=== PATIENT | female | born 1975 | race Caucasian/White ===

== ENCOUNTER 2016-08-11 15:00 | Emergency (ER) | payer BC ==
[2016-08-11] MEDS ORDERED: SODIUM CHLORIDE 0.9% 1,000 ML IV STA ×2 (15:35)
[2016-08-11] MEDS ORDERED: LORazepam 2 MG/ML SYRINGE IV STA (15:35)
[2016-08-11] MEDS ORDERED: ONDANSETRON 4 MG/2 ML VIAL IVP STA (15:35)
--- NOTE | 2016-08-11 15:40 | ED ---
General Adult HPI - General Chief complaint: Dizziness Stated complaint: Vomiting/Dizzy Source: patient, family, RN notes reviewed Mode of arrival: wheelchair Limitations: no limitations - History of Present Illness Initial comments: Chief complaint and history of present illness; this is a 41-year-old female here with her significant other. She reports she's had nausea vomiting and diarrhea that started yesterday. Today nausea vomiting. She states when she moves her head she becomes dizzy and vomits sometimes. On occasion she has the sweats and then the chills. Denying any chest pain or palpitations. No chest pain. She has had on-again off-again headache for the past 2 days. No meningeal irritation. No stiff neck. No injuries. - Related Data Home Medications Medication Instructions Recorded Confirmed Inulin/Chromium Picolinate [Fiber 1 tab PO DAILY 08/11/16 08/11/16 Gummies Chew] Phentermine HCl [Adipex-P] 37.5 mg PO QAM 08/11/16 08/11/16 Prilosec Unknown Strength 1 tab PO DAILY PRN 08/11/16 08/11/16 Topamax Unknown Strength 1 tab PO DAILY 08/11/16 08/11/16 Previous Rx's Medication Instructions Recorded Meclizine [Antivert] 25 mg PO TID #30 tab 08/11/16 Ondansetron Odt [Zofran ODT] 4 mg PO Q8HR PRN #5 tab 08/11/16 Allergies Allergy/AdvReac Type Severity Reaction Status Date / Time No Known Allergies Allergy Verified 08/11/16 16:09 Review of Systems ROS Statement: Those systems with pertinent positive or pertinent negative responses have been documented in the HPI. Review of systems. No visual acuity changes, occasional headaches. Dizziness with vomiting. No meningismus or stiff neck. No complaint of chest pain or shortness of breath. She's had nausea vomiting and diarrhea yesterday nausea vomiting today. Denies bad food, denies blood in the vomit or stool. Denies anyone else in the area around her has been ill with similar symptoms. All systems reviewed. Past medical problems GERD, surgeries none. Family history father had an SC. Patient denies ALLERGIES nonsmoker nondrinker. Denies being around any or exposed to any harmful chemicals. ROS Other: All systems not noted in ROS Statement are negative. Past Medical History Past Medical History: GERD/Reflux History of Any Multi-Drug Resistant Organisms: None Reported Past Surgical History: No Surgical Hx Reported Past Psychological History: No Psychological Hx Reported Smoking Status: Never smoker Past Alcohol Use History: None Reported Past Drug Use History: None Reported General Exam - General Exam Comments Initial Comments: General: The patient is awake and alert, feels nauseated and vomited. Temp 98.1 pulse 65 respiratory rate 20 pulse ox on percent room air blood pressure 126/79 . Patient had slight sinus congestion last week. Eye: Pupils are equal, round and reactive to light, extra-ocular movements are intact ; there is normal conjunctiva bilaterally. No signs of icterus. Ears, nose, mouth and throat: There are moist mucous membranes and no oral lesions. Neck: No complaint of stiff neck or neck pain. Cardiovascular: There is a regular rate and rhythm. No murmur, rub or gallop is appreciated. Respiratory: Lungs are clear to auscultation, respirations are non-labored, breath sounds are equal. No wheezes, stridor, rales, or rhonchi. Gastrointestinal: Back: There is no tenderness to palpation in the midline. There is no obvious deformity. Musculoskeletal: Normal ROM, no tenderness, There is no pedal edema. There is no calf tenderness or swelling. Sensation intact. Neurological: CN II-XII intact, There are no obvious motor or sensory deficits. Coordination appears grossly intact. Speech is normal. Patient gets dizzy and vomits with head movement. Skin: Skin is warm and dry and no rashes or lesions are noted. Limitations: no limitations Course Vital Signs 08/11/16 08/11/16 15:06 17:09 Temperature 98.1 F Pulse Rate 65 72 Respiratory 20 16 Rate Blood Pressure 126/79 129/82 O2 Sat by Pulse 100 100 Oximetry EKG Findings - EKG Comments: EKG Findings:: EKG was done and reviewed at 1659 showing sinus bradycardia rate [address] elevation no ectopy no ischemic changes. OK interval is 146 QRS was 90 QT [address] Trejo Medical Decision Making - Medical Decision Making Medical decision making patient's white count is 10.9 hemoglobin 10 hematocrit of 32 with a potassium 4.2 BUN 11 creatinine 0.7 with a GFR greater than 60 glucose 90. Patient states she is feeling better with medications on board CT the brain was done and reviewed by radiologist his impression is normal CT brain. As read by Dr. Peoples At this time the patient reports she is feeling slightly better. She will be placed on medications for nausea as well as dizziness. - Lab Data Result diagrams: 08/11/16 17:00 08/11/16 17:00 Lab Results 08/11/16 08/11/16 08/11/16 Range/Units 17:00 17:00 17:00 WBC 10.9 H (3.8-10.6) k/uL RBC 3.83 (3.80-5.40) m/uL Hgb 10.1 L (11.4-16.0) gm/dL Hct 32.5 L (34.0-46.0) % MCV 84.7 (80.0-100.0) fL MCH 26.2 (25.0-35.0) pg MCHC 31.0 (31.0-37.0) g/dL RDW 14.2 (11.5-15.5) % Plt Count 333 (150-450) k/uL Neutrophils % 91 % Lymphocytes % 6 % Monocytes % 3 % Eosinophils % 0 % Basophils % 0 % Neutrophils # 9.9 H (1.3-7.7) k/uL Lymphocytes # 0.6 L (1.0-4.8) k/uL Monocytes # 0.3 (0-1.0) k/uL Eosinophils # 0.0 (0-0.7) k/uL Basophils # 0.0 (0-0.2) k/uL Hypochromasia Moderate Sodium 142 (137-145) mmol/L Potassium 4.2 (3.5-5.1) mmol/L Chloride 110 H (98-107) mmol/L Carbon Dioxide 22 (22-30) mmol/L Anion Gap 10 mmol/L BUN 11 (7-17) mg/dL Creatinine 0.70 (0.52-1.04) mg/dL Est GFR (MDRD) Af Amer >60 (>60 ml/min/1.73 sqM) Est GFR (MDRD) Non-Af >60 (>60 ml/min/1.73 sqM) Glucose 97 (74-99) mg/dL Calcium 9.3 (8.4-10.2) mg/dL Total Bilirubin 0.5 (0.2-1.3) mg/dL AST 13 L (14-36) U/L ALT 20 (9-52) U/L Alkaline Phosphatase 53 (38-126) U/L Troponin I <0.012 (0.000-0.034) ng/mL Total Protein 7.4 (6.3-8.2) g/dL Albumin 4.1 (3.5-5.0) g/dL Disposition Clinical Impression: Vertigo Disposition: HOME SELF-CARE Condition: Fair Instructions: Dizziness (ED), Vertigo (ED) Additional Instructions: Increase fluids. Use Antivert 1 tablet 3 times daily for the next 10 days. Use Zofran under your tongue to control for nausea and vomiting. Follow-up with your family physician Prescriptions: Meclizine [Antivert] 25 mg PO TID #30 tab Ondansetron Odt [Zofran ODT] 4 mg PO Q8HR PRN #5 tab PRN Reason: Nausea Time of Disposition: 19:39
[2016-08-11] MEDS ORDERED: MECLIZINE 12.5 MG TAB PO STA (16:28)
[2016-08-11 17:27] LABS: Basophils % (A) 0 %; CH 26.1; CHCM 30.9; Eosinophils % (A) 0 %; HCT 32.5 % (34.0-46.0); HDW 2.85; HGB 10.1 gm/dL (11.4-16.0); Hypochromasia Moderate; Luc # (Auto) 0.07; Luc % (Auto) 1; Lymphocytes # (A) 0.6 k/uL (1.0-4.8); Lymphocytes % (A) 6 %; MCH 26.2 pg (25.0-35.0); MCV 84.7 fL (80.0-100.0); Mean Platelet Volume 7.1; Monocytes # (A) 0.3 k/uL (0-1.0); Monocytes % (A) 3 %; Neutrophils # (A) 9.9 k/uL (1.3-7.7); Neutrophils % (A) 91 %; RBC 3.83 m/uL (3.80-5.40); RDW 14.2 % (11.5-15.5); WBC 10.9 k/uL (3.8-10.6); WBC (Perox) 10.88
[2016-08-11 17:42] LABS: ALT 20 U/L (9-52); AST 13 U/L (14-36); Alkaline Phosphatase 53 U/L (38-126); Anion Gap 10 mmol/L; Blood Urea Nitrogen 11 mg/dL (7-17); Calcium 9.3 mg/dL (8.4-10.2); Carbon Dioxide 22 mmol/L (22-30); Chloride 110 mmol/L (98-107); Glucose 97 mg/dL (74-99); Non-African American GFR(MDRD) >60 (>60 ml/min/1.73 sqM); Potassium 4.2 mmol/L (3.5-5.1); Sodium 142 mmol/L (137-145); Total Bilirubin 0.5 mg/dL (0.2-1.3); Total Protein 7.4 g/dL (6.3-8.2)
[2016-08-11 18:42] VITALS: RESP 16
[2016-08-11] MEDS ORDERED: METOCLOPRAMIDE 5 MG/ML 2 ML VIAL IVP STA (18:45)
--- NOTE | 2016-08-11 19:14 | CT ---
EXAMINATION TYPE: CT brain wo con DATE OF EXAM: 08/11/2016 6:28 PM COMPARISON: 06/13/2011 INDICATION: Headache and dizziness for 2 days DLP: 1051.7 mGycm, Automated exposure control for dose reduction was used. CONTRAST: None CT of the brain is performed utilizing 3 mm thick sections through the posterior fossa and 3 mm thick sections through the remaining calvarium. Study is performed within 24 hours of arrival to the hosp [facility]. No abnormal hyperdensity is present to suggest an acute intracranial hemorrhage. No mass lesion is evident. No acute infarcts are evident. Ventricles and sulci are appropriate for the patient age. Paranasal sinuses and mastoid air cells within the [id number] are clear. IMPRESSIONS: 1. Normal CT Brain
[2016-08-11 19:50] VITALS: BP 135/85; PULSE 77
[2016-08-11 20:30] VITALS: TEMP 98
== END 2016-08-11 20:20 | disposition home or self-care (01) ==
LOC: EC 15:00
DX: R42 Dizziness and giddiness (principal); R09.81 Nasal congestion; R11.2 Nausea with vomiting, unspecified; R51 Headache; R68.83 Chills (without fever); Z79.899 Other long term (current) drug therapy
CPT/HCPCS: 99284; 96374; 96375; 96361 ×3; 36415; 93005; 80053; 84484; 85025; 70450; J2060; J2405

== ENCOUNTER 2016-09-02 08:08 | Day surgery (SDC) | payer BC ==
[2016-08-30 09:02] VITALS: BMI 23.9
[~2016-09-02 08:08] MED LIST: LACTATED RINGERS 1,000 ML IV SCH; LIDOCAINE 1% 20 ML VIAL (10MG/ML) FOR IV START INTRADERMA PRN
[2016-09-02] MEDS ORDERED: LACTATED RINGERS 1,000 ML IV ONE (08:21)
[2016-09-02 08:26] VITALS: TEMP 98
[2016-09-02] MEDS ORDERED: PROPOFOL 10 MG/ML 20 ML VIAL IV ONE (08:45)
--- NOTE | 2016-09-02 09:16 | P.OP ---
Date of Procedure: 09/02/16 Preoperative Diagnosis: Abdominal pain , weight loss, constipation Postoperative Diagnosis: Normal colon Procedure(s) Performed: Colonoscopy with biopsy using cold biospy forceps Anesthesia: AD Surgeon: Lenora Wells Pathology: other Condition: stable Disposition: PACU Description of Procedure: The patient was brought to the endoscopy suite and placed in lateral decubitus position. IV sedation was given as per anesthesia team.A timeout was performed to verify correct patient and correct procedure.Perianal examination did not reveal any external hemorrhoids. Digital rectal examination was performed. A well-lubricated endoscope was passed per rectally and was gradually advanced beyond the sigmoid colon, splenic flexure, transverse colon, hepatic flexure and cecum. The ileocecal valve was visualized. Scope was gradually withdrawn inspecting all the mucosal surfaces. No other polyps or masses noted. No biopsies were taken throughout the colon in the cecum and transverse colon ascending colon sigmoid and rectum. Retroflexed in the rectum no internal hemorrhoid was noted . The scope was gradually withdrawn. Patient tolerated the procedure well and was taken to post anesthesia care unit in stable condition.
[2016-09-02 09:19] VITALS: RESP 16
[2016-09-02 09:44] VITALS: BP 138/94; PULSE 67
== END 2016-09-02 10:15 | disposition home or self-care (01) ==
LOC: ORWHC2ENDO 08:08
PROVIDERS: ATTEND Surgery
DX: R10.9 Unspecified abdominal pain (principal); R63.4 Abnormal weight loss; K59.00 Constipation, unspecified; K21.0 Gastro-esophageal reflux disease with esophagitis; I10 Essential (primary) hypertension; E78.00 Pure hypercholesterolemia, unspecified; Z79.899 Other long term (current) drug therapy
CPT/HCPCS: 81025; 88305; 45380; J2704

== ENCOUNTER → 2017-03-13 | Outpatient (CLI) | payer BC ==
--- NOTE | 2017-03-13 11:09 | MM ---
Reason for exam: screening (asymptomatic). Baseline mammogram. History: Took hormonal contraceptives beginning at age 21. Physical Findings: Nurse did not find any significant physical abnormalities on exam. MG Screening Mammo w CAD Bilateral CC and MLO view(s) were taken. The breast tissue is heterogeneously dense. This may lower the sensitivity of mammography. There is no discrete abnormality. These results were verbally communicated with the patient and result sheet given to the patient on 03/13/17. ASSESSMENT: Incomplete: need additional imaging evaluation, BI-RAD 0 RECOMMENDATION: Ultrasound of the left breast. [facility] will attempt to contact patient to return for ultrasound.
--- NOTE | 2017-03-13 11:12 | USB ---
Reason for exam: additional evaluation requested from abnormal screening. History: Took hormonal contraceptives beginning at age 21. US Breast Workup Limited LT Left breast ultrasound demonstrates no cystic or solid lesion seen. These results were verbally communicated with the patient and result sheet given to the patient on 03/13/17. ASSESSMENT: Negative, BI-RAD 1 RECOMMENDATION: Return to routine screening mammogram schedule for both breasts. Manage on a clinical basis with regard to left palpable.
== END ==
LOC: RADMAMWWP 07:21
PROVIDERS: ATTEND Obstetrics & Gynecology
DX: Z12.31 Encounter for screening mammogram for malignant neoplasm of breast (principal); R92.8 Other abnormal and inconclusive findings on diagnostic imaging of breast
CPT/HCPCS: 76642; G0202

== ENCOUNTER 2018-10-16 20:36 | Observation (INO) | payer BC ==
--- NOTE | 2018-10-16 21:19 | ED ---
General Adult HPI - General Chief complaint: Back Pain/Injury Stated complaint: Back,Shoulder,Rib Pain Time Seen by Provider: 10/16/18 21:18 Source: patient Mode of arrival: ambulatory Limitations: no limitations - History of Present Illness Initial comments: Damaris is a 43-year-old female with past medical history significant for spontaneous pneumothorax which occurred while she was ~15 years ago. Patient's presenting to the ER today for evaluation of pleuritic left-sided chest pain. Patient reports that 2-3 days ago she is having some aching cramping pain in her right lower extremity she had noticed some scant edema in her bilateral feet. As no history of clotting disorder no known family history of clotting disorder no personal history of DVT or PE in the past. Patient reports she woke this morning with a sharp pain in her left chest which is worse with deep inspiration. As I tried any medications for the pain, is been persist ent all day. She denies any associated fevers, chills, palpitations. She has no cardiac history. She is concerned that she may have inflammation around her lung. - Related Data Home Medications Medication Instructions Recorded Confirmed Ergocalciferol [Vitamin D2] 50,000 unit PO WE 10/16/18 10/16/18 Etonogestrel/Ethinyl Estradiol 1 ring VAGINAL DIRECTED 10/16/18 10/16/18 [Nuvaring Vaginal Ring] Iron(Unknown) 1 tab PO BID 10/16/18 10/16/18 Pantoprazole Sodium [Protonix] 40 mg PO DAILY 10/16/18 10/16/18 Allergies Allergy/AdvReac Type Severity Reaction Status Date / Time No Known Allergies Allergy Verified 10/16/18 21:49 Review of Systems ROS Statement: Those systems with pertinent positive or pertinent negative responses have been documented in the HPI. ROS Other: All systems not noted in ROS Statement are negative. Past Medical History Past Medical History: GERD/Reflux, Hypertension Additional Past Medical History / Comment(s): ANEMIA, STATES HEAVY MENSTRUAL PERIODS. , HTN- NO MEDS. History of Any Multi-Drug Resistant Organisms: None Reported Past Surgical History: No Surgical Hx Reported Additional Past Surgical History / Comment(s): EGD Past Anesthesia/Blood Transfusion Reactions: No Reported Reaction, Motion Sickness Past Psychological History: No Psychological Hx Reported Smoking Status: Never smoker Past Alcohol Use History: None Reported Past Drug Use History: None Reported - Past Family History Mother Family Medical History: No Reported History General Exam Limitations: no limitations Course Vital Signs 10/16/18 20:53 Temperature 98.3 F Pulse Rate 83 Respiratory 20 Rate Blood Pressure 155/97 O2 Sat by Pulse 100 Oximetry EKG Findings - EKG Comments: EKG Findings:: EKG was obtained due to complaint of chest pain, EKG obtained at 2203, 74 rhythm is sinus there is normal axis there are normal intervals, DE 152, QRS 78, QTC is 452. There is no evidence of acute ischemia or infarction there is no evidence of acute right heart strain there is no S1 Q3 T3 pattern noted. Medical Decision Making - Medical Decision Making The patient was seen and evaluated history was obtained from the patient Patient with pleuritic sounding left-sided chest pain, she does have a history of a spontaneous pneumo in the past workup was initiated with labs and imaging His x-ray was unremarkable Labs with worsening anemia, previous hemoglobin and 2017 was noted to be 10, patient states thather Hgb last month was 8, hemoglobin today is 7.8 D-dimer is markedly elevated - CT pulmonary embolism study was ordered CT reveals a left segmental pulmonary embolism with no signs of acute right heart strain Results were discussed with patient High dose heparin ordered Pt care discussed with Dr. Montague who accepts the admission - Lab Data Result diagrams: 10/16/18 21:20 10/16/18 21:20 Lab Results 10/16/18 10/16/18 10/16/18 Range/Units 21:20 21:20 21:20 WBC 6.5 (3.8-10.6) k/uL RBC 3.70 L (3.80-5.40) m/uL Hgb 7.8 L (11.4-16.0) gm/dL Hct 25.7 L (34.0-46.0) % MCV 69.6 L (80.0-100.0) fL MCH 21.2 L (25.0-35.0) pg MCHC 30.4 L (31.0-37.0) g/dL RDW 16.5 H (11.5-15.5) % Plt Count 285 (150-450) k/uL Neutrophils % 69 % Lymphocytes % 23 % Monocytes % 5 % Eosinophils % 1 % Basophils % 0 % Neutrophils # 4.5 (1.3-7.7) k/uL Lymphocytes # 1.5 (1.0-4.8) k/uL Monocytes # 0.4 (0-1.0) k/uL Eosinophils # 0.1 (0-0.7) k/uL Basophils # 0.0 (0-0.2) k/uL Hypochromasia Marked Poikilocytosis Slight Anisocytosis Slight Microcytosis Marked D-Dimer 2.10 H (<0.60) mg/L FEU Sodium 140 (137-145) mmol/L Potassium 3.7 (3.5-5.1) mmol/L Chloride 107 (98-107) mmol/L Carbon Dioxide 25 (22-30) mmol/L Anion Gap 8 mmol/L BUN 12 (7-17) mg/dL Creatinine 0.81 (0.52-1.04) mg/dL Est GFR (CKD-EPI)AfAm >90 (>60 ml/min/1.73 sqM) Est GFR (CKD-EPI)NonAf 89 (>60 ml/min/1.73 sqM) Glucose 99 (74-99) mg/dL Calcium 9.1 (8.4-10.2) mg/dL Magnesium 1.9 (1.6-2.3) mg/dL Total Bilirubin 0.3 (0.2-1.3) mg/dL AST 11 L (14-36) U/L ALT <6 L (9-52) U/L Alkaline Phosphatase 69 (38-126) U/L Troponin I (0.000-0.034) ng/mL Total Protein 7.8 (6.3-8.2) g/dL Albumin 4.1 (3.5-5.0) g/dL 10/16/18 Range/Units 21:20 WBC (3.8-10.6) k/uL RBC (3.80-5.40) m/uL Hgb (11.4-16.0) gm/dL Hct (34.0-46.0) % MCV (80.0-100.0) fL MCH (25.0-35.0) pg MCHC (31.0-37.0) g/dL RDW (11.5-15.5) % Plt Count (150-450) k/uL Neutrophils % % Lymphocytes % % Monocytes % % Eosinophils % % Basophils % % Neutrophils # (1.3-7.7) k/uL Lymphocytes # (1.0-4.8) k/uL Monocytes # (0-1.0) k/uL Eosinophils # (0-0.7) k/uL Basophils # (0-0.2) k/uL Hypochromasia Poikilocytosis Anisocytosis Microcytosis D-Dimer (<0.60) mg/L FEU Sodium (137-145) mmol/L Potassium (3.5-5.1) mmol/L Chloride (98-107) mmol/L Carbon Dioxide (22-30) mmol/L Anion Gap mmol/L BUN (7-17) mg/dL Creatinine (0.52-1.04) mg/dL Est GFR (CKD-EPI)AfAm (>60 ml/min/1.73 sqM) Est GFR (CKD-EPI)NonAf (>60 ml/min/1.73 sqM) Glucose (74-99) mg/dL Calcium (8.4-10.2) mg/dL Magnesium (1.6-2.3) mg/dL Total Bilirubin (0.2-1.3) mg/dL AST (14-36) U/L ALT (9-52) U/L Alkaline Phosphatase (38-126) U/L Troponin I <0.012 (0.000-0.034) ng/mL Total Protein (6.3-8.2) g/dL Albumin (3.5-5.0) g/dL Disposition Clinical Impression: Pulmonary embolism Disposition: ADMITTED IP TO THIS HOSP Condition: Stable Is patient prescribed a controlled substance at d/c from ED?: No Referrals: Royal Rose MD [Primary Care Provider] - 1-2 days
[2018-10-16] MEDS ORDERED: KETOROLAC 30 MG/ML 1 ML VIAL IVP STA (21:39)
[2018-10-16 21:56] LABS: Anisocytosis Slight; Basophils % (A) 0 %; Eosinophils # (A) 0.1 k/uL (0-0.7); Eosinophils % (A) 1 %; HCT 25.7 % (34.0-46.0); HGB 7.8 gm/dL (11.4-16.0); Hypochromasia Marked; Lymphocytes # (A) 1.5 k/uL (1.0-4.8); Lymphocytes % (A) 23 %; MCH 21.2 pg (25.0-35.0); MCHC 30.4 g/dL (31.0-37.0); MCV 69.6 fL (80.0-100.0); Mean Platelet Volume 7.2; Microcytosis Marked; Monocytes # (A) 0.4 k/uL (0-1.0); Monocytes % (A) 5 %; Neutrophils # (A) 4.5 k/uL (1.3-7.7); Neutrophils % (A) 69 %; Platelet Count 285 k/uL (150-450); Poikilocytosis Slight; RDW 16.5 % (11.5-15.5); WBC 6.5 k/uL (3.8-10.6)
--- NOTE | 2018-10-16 22:04 | XR ---
EXAMINATION: XR chest 2V DATE AND TIME: 10/16/2018 9:55 PM CLINICAL INDICATION: PHH; Chest Pain TECHNIQUE: Departmental protocol COMPARISON: None FINDINGS: The lungs are clear. The pleural spaces are negative. The cardiac silhouette is not enlarged. The remainder of the mediastinal silhouette is unremarkable. The skeletal structures and soft tissues are negative for acute findings. IMPRESSION: NO ACUTE PROCESS.
[2018-10-16 22:07] LABS: ALT <6 U/L (9-52); AST 11 U/L (14-36); African American GFR (CKD) >90 (>60 ml/min/1.73 sqM); Albumin 4.1 g/dL (3.5-5.0); Alkaline Phosphatase 69 U/L (38-126); Anion Gap 8 mmol/L; Blood Urea Nitrogen 12 mg/dL (7-17); Calcium 9.1 mg/dL (8.4-10.2); Carbon Dioxide 25 mmol/L (22-30); Chloride 107 mmol/L (98-107); Glucose 99 mg/dL (74-99); Magnesium 1.9 mg/dL (1.6-2.3); Potassium 3.7 mmol/L (3.5-5.1); Sodium 140 mmol/L (137-145); Total Bilirubin 0.3 mg/dL (0.2-1.3); Total Protein 7.8 g/dL (6.3-8.2)
[2018-10-16] MEDS ORDERED: HEPARIN SODIUM,PORCINE 10,000 UNIT/ML 1 ML VIAL IV ONE (22:53)
[2018-10-16] MEDS ORDERED: HEPARIN SODIUM,PORCINE 5,000 UNIT/ML 1 ML VIAL IV PRN (22:53)
--- NOTE | 2018-10-16 22:53 | CT ---
EXAM: CT Angiography Chest With Intravenous Contrast CLINICAL HISTORY: ITS.REASON CT Reason: Pain left chest, elevated dimer TECHNIQUE: Axial computed tomographic angiography images of the chest with intravenous contrast using pulmonary embolism protocol. CTDI is 10.77 mGy and DLP is 271.1 mGy-cm. This CT exam was performed using one or more of the following dose reduction techniques: automated exposure control, adjustment of the mA and/or kV according to patient size, and/or use of iterative reconstruction technique. MIP reconstructed images were created and reviewed. COMPARISON: None. FINDINGS: Pulmonary arteries: Segmental pulmonary emboli in the left lower lobe. Aorta: No acute findings. No thoracic aortic aneurysm. Lungs: Scarring in the upper lobes. No mass. Pleural space: Unremarkable. No significant effusion. No pneumothorax. Heart: Unremarkable. No cardiomegaly. No significant pericardial effusion. No evidence of RV dysfunction. Bones/joints: No acute fracture. No dislocation. Soft tissues: Unremarkable. Lymph nodes: Unremarkable. No enlarged lymph nodes. IMPRESSION: Segmental pulmonary emboli in the left lower lobe. <MYCVCSECTION> Critical Value Communications 10/16/18 22:53 Call Doctor Regarding Pulmonary Embolism, called Dr. Hobbs on 10/16 22:52 (-04:00)
[2018-10-16] MEDS ORDERED: HEPARIN SOD,PORK IN 0.45% NACL 25,000 UNIT in 0.45% NACL 1 250ML.BAG IV SCH (23:00)
[2018-10-16] MEDS ORDERED: NALOXONE 0.4 MG/ML 1 ML VIAL IV PRN (23:05)
--- NOTE | 2018-10-16 23:52 | P.HPIM ---
History of Present Illness H&P Date: 10/16/18 The patient is a 43 yo F with a PMH of chronic iron def anemia (secondary to menorrhagia) and HTN who presented to the ED for shortness of breath. The patient reports that her symptoms started on Friday night (10/11/18) when she suddenly developed a cramping R calf pain. The pain however resolved spon taneously by the following morning and the patient didn't think much of it. She reported noticing no LE edema, warmth, or redness at that time. She returned to her baseline and was doing well until night (10/15/18) when she developed a L lower chest pain, pleuritic, w/ radiation to the L shoulder and scapula. The pain was 8/10, with associated shortness of breath. The pain was intermittent and initially resolved after an hour or two. It however recurred the following day (10/16/18), prompting her to come to the ED. The patient works a desk-job and notes that on most days, she sits on her chair for >3-4 hours at a time without getting up. She denied ever having clots in the past. She further denied family history of any blood clots. At time of interview, patient reports had pain had improved to a 4/10 with medications, continues to be pleuritic, on L lower chest, w/ radiation to L shoulder and scapula. She otherwise denied cough, fever, or chills. Further denied dizziness, headache, weakness, numbness, or tingling. Denied abdominal pain, nausea, vomiting, or diarrhea. The patient underwent an extensive evaluation in the ED w/ CTA Chest revealing L lower lobe subsegmental PE. Laboratory evaluation revealed a d-dimer 2.10, WBC 6.5, Hgb 7.8 (previously 8, 1 month ago, as per patient), platelets 285, BUN 12, Cr 0.81, and Troponin < 0.012. The patient was subsequently admitted to the medicnie service for further management. Review of Systems Pertinent positives and negatives as discussed in HPI, a complete review of systems was performed and all other systems are negative. Past Medical History Past Medical History: GERD/Reflux, Hypertension Additional Past Medical History / Comment(s): ANEMIA, STATES HEAVY MENSTRUAL PERIODS. , HTN- NO MEDS. History of Any Multi-Drug Resistant Organisms: None Reported Past Surgical History: No Surgical Hx Reported Additional Past Surgical History / Comment(s): EGD Past Anesthesia/Blood Transfusion Reactions: No Reported Reaction, Motion S ickness Past Psychological History: No Psychological Hx Reported Smoking Status: Never smoker Past Alcohol Use History: None Reported Past Drug Use History: None Reported - Past Family History Mother Family Medical History: No Reported History, Hyperlipidemia Medications and Allergies Home Medications Medication Instructions Recorded Confirmed Type Ergocalciferol [Vitamin D2] 50,000 unit PO WE 10/16/18 10/16/18 History Etonogestrel/Ethinyl Estradiol 1 ring VAGINAL DIRECTED 10/16/18 10/16/18 History [Nuvaring Vaginal Ring] Iron(Unknown) 1 tab PO BID 10/16/18 10/16/18 History Pantoprazole Sodium [Protonix] 40 mg PO DAILY 10/16/18 10/16/18 History Allergies Allergy/AdvReac Type Severity Reaction Status Date / Time No Known Allergies Allergy Verified 10/16/18 21:49 Physical Exam Vitals: Vital Signs Temp Pulse Resp BP Pulse Ox 10/16/18 23:12 74 20 148/94 100 10/16/18 20:53 98.3 F 83 20 155/97 100 Intake and Output 10/16/18 10/16/18 10/17/18 14:59 22:59 06:59 Other: Weight 81.647 kg General: non toxic, no distress, appears at stated age, normal weight Derm: no unusual rashes/lesions no unusual ecchymoses, warm, dry Head: atraumatic, normocephalic, symmetric Eyes: EOMI, no lid lag, anicteric sclera, pupils equal round reactive to light ENT: Nose and ears atraumatic, no thrush, no pharyngeal erythema Neck: No thyromegaly, no cervical lymphadenopathy, trachea midline, supple Mouth: no lip lesion, mucus membranes moist Cardiovascular: S1S2 reg, no murmur, positive posterior tibial pulse bilateral, no edema, capillary refill less than 2 seconds Lungs: CTA bilateral, no rhonchi, no rales , no accessory muscle use Abdominal: soft, nontender to palpation, no guarding, no appreciable organomegaly, normal bowel sounds Ext: no gross muscle atrophy, muscle strength 5 out of 5 in all 4 extremities grossly, no contractures, Neuro: CN II-XI grossly intact, light touch intact all 4 extremities, finger to nose within normal limits, Psych: Alert, oriented, appropriate affect Results CBC & Chem 7: 10/16/18 21:20 10/16/18 21:20 Labs: Abnormal Lab Results - Last 24 Hours (Table) 10/16/18 10/16/18 10/16/18 Range/Units 21:20 21:20 21:20 RBC 3.70 L (3.80-5.40) m/uL Hgb 7.8 L (11.4-16.0) gm/dL Hct 25.7 L (34.0-46.0) % MCV 69.6 L (80.0-100.0) fL MCH 21.2 L (25.0-35.0) pg MCHC 30.4 L (31.0-37.0) g/dL RDW 16.5 H (11.5-15.5) % D-Dimer 2.10 H (<0.60) mg/L FEU AST 11 L (14-36) U/L ALT <6 L (9-52) U/L Assessment and Plan Plan: Acute provoked pulmonary embolism -Patient is scheduled to travel to [place] on Friday and notes that she will not be able to change her flight -Continue with heparin infusion for now -Start patient on Lovenox in a.m. with nurse teaching -Attempt to obtain authorization for Xarelto or Eliquis, though may be difficult since it is the weekend -If unable to prescribe Xarelto Eliquis, patient will likely be discharged on Lovenox subcu -Will forego any hypercoagulability testing for now Chronic severe microcytic anemia -Patient reports chronic menorrhagia -Continue with iron supplementation -Monitor CBC Hypertension -Continue with home medications GERD -C/w home med: Protonix DVT prophylaxis -Heparin infusion The patient is admitted with an anticipated less than 2 midnight stay for eval uation of acute PE. CODE STATUS:Full Code Discussed with: Patient Anticipated discharge date: 10/17/[address]: Home A total of 50 minutes was spent on the care of this complex patient more than 50% of the time was spent in counseling and care coordination.
--- NOTE | 2018-10-17 00:50 | US ---
EXAM: US Duplex Bilateral Lower Extremity Veins CLINICAL HISTORY: ITS.REASON US Reason: Pain, PE confirmed TECHNIQUE: Real-time duplex ultrasound scan of the bilateral lower extremity veins integrating B-mode two-dimensional vascular structure, Doppler spectral analysis, color flow Doppler imaging and compression. COMPARISON: None. FINDINGS: Right deep veins: Unremarkable. No DVT in the right common femoral, femoral, proximal deep femoral or popliteal veins. The veins demonstrate normal color flow, are normally compressible, with normal phasic flow and/or augmentation response. Right superficial veins: Unremarkable. No thrombus in the visualized right great saphenous vein. Left deep veins: Unremarkable. No DVT in the left common femoral, femoral, proximal deep femoral or popliteal veins. The veins demonstrate normal color flow, are normally compressible, with normal phasic flow and/or augmentation response. Left superficial veins: Unremarkable. No thrombus in the visualized left great saphenous vein. Soft tissues: No acute findings. No popliteal cyst. IMPRESSION: No evidence of deep vein thrombosis in the right or left lower extremity.
[2018-10-17] MEDS ORDERED: ACETAMINOPHEN TAB 325 MG TAB PO PRN (01:36)
[2018-10-17 05:39] VITALS: BP 113/70; PULSE 67; RESP 16; TEMP 98.4
[2018-10-17] MEDS ORDERED: IBUPROFEN 400 MG TAB PO STA ×2 (06:10)
[2018-10-17 06:18] LABS: Anisocytosis Slight; Basophils % (A) 0 %; Eosinophils % (A) 1 %; HCT 23.5 % (34.0-46.0); HGB 7.1 gm/dL (11.4-16.0); Hypochromasia Marked; Lymphocytes # (A) 1.1 k/uL (1.0-4.8); Lymphocytes % (A) 25 %; MCH 20.6 pg (25.0-35.0); MCHC 30.2 g/dL (31.0-37.0); MCV 68.2 fL (80.0-100.0); Mean Platelet Volume 7.6; Microcytosis Marked; Monocytes # (A) 0.3 k/uL (0-1.0); Monocytes % (A) 6 %; Neutrophils # (A) 2.9 k/uL (1.3-7.7); Neutrophils % (A) 65 %; Platelet Count 269 k/uL (150-450); Poikilocytosis Slight; RBC 3.45 m/uL (3.80-5.40); RDW 16.7 % (11.5-15.5); WBC 4.4 k/uL (3.8-10.6)
[2018-10-17] MEDS ORDERED: PANTOPRAZOLE 40 MG TABLET PO SCH (09:00)
[2018-10-17] MEDS ORDERED: traMADol 50 MG TAB PO PRN (09:11)
[2018-10-17] MEDS ORDERED: APIXABAN 5 MG TAB PO SCH (09:15)
--- NOTE | 2018-10-17 11:39 | P.DS ---
Providers Date of admission: 10/16/18 23:05 Expected date of discharge: 10/17/18 Attending physician: Meagn Montague MD Primary care physician: Royal Rose - Discharge Diagnosis(es) (1) Pulmonary embolism Current Visit: Yes Status: Acute (2) Iron deficiency anemia Current Visit: Yes Status: Acute (3) DUB (dysfunctional uterine bleeding) Current Visit: Yes Status: Acute (4) Essential hypertension Current Visit: Yes Status: Acute Hospital Course: The patient is a 43-year-old female that was admitted with acute pulmonary embolism after presenting with pleuritic chest pain and dyspnea, workup this prompted a CTA of the chest after the patient is to have a elevated d-dimer of 2.10. CTA of the chest confirmed a segmental pulmonary emboli in the left lower lobe, lower extremity venous Dopplers were negative. The patient was started on a heparin drip per protocol. The patient's pulmonary embolism was provoked by her contraceptive methods as a patient was currently using a NuvaRing to contact show old her ongoing menorrhagia and dysfunctional uterine bleeding. The patient was told to remove her NuvaRing to follow with her gy necologist. The patient was transitioned to DOAC and initiated on Eliquis. She was subsequently discharged home in stable condition with a prescription for tramadol and Eliquis. Her NuvaRing was discontinued. This discharge process took approximately 35 minutes Focused exam: Respiratory: Clear to auscultation bilaterally, no wheezes or rhonchi, breathing unlabored on room air Patient Condition at Discharge: Stable Plan - Discharge Summary Discharge Rx Participant: No New Discharge Prescriptions: New Apixaban [Eliquis] 5 mg PO BID #60 tab traMADol HCl [Ultram] 50 mg PO Q6H PRN #12 tab PRN Reason: Pain Continue Iron(Unknown) 1 tab PO BID Pantoprazole Sodium [Protonix] 40 mg PO DAILY Ergocalciferol [Vitamin D2 (DRISDOL)] 50,000 unit PO WE Discontinued Etonogestrel/Ethinyl Estradiol [Nuvaring Vaginal Ring] 1 ring VAGINAL DIRECTED Discharge Medication List Ergocalciferol [Vitamin D2 (DRISDOL)] 50,000 unit PO WE 10/16/18 [History] Iron(Unknown) 1 tab PO BID 10/16/18 [History] Pantoprazole Sodium [Protonix] 40 mg PO DAILY 10/16/18 [History] Apixaban [Eliquis] 5 mg PO BID #60 tab 10/17/18 [Rx] traMADol HCl [Ultram] 50 mg PO Q6H PRN #12 tab 10/17/18 [Rx] Follow up Appointment(s)/Referral(s): Royal Rose MD [Primary Care Provider] - 1-2 days (Patient to call Dr. Rose's office Friday morning to schedule follow up appointment. The office is closed at time of discharge. ) Patient Instructions/Handouts: Tramadol (By mouth), Apixaban (By mouth), Pulmonary Embolism (DC) Discharge Disposition: HOME SELF-CARE
== END 2018-10-17 13:00 | disposition home or self-care (01) ==
LOC: EC 20:36 → 3NMEDONC 23:05
PROVIDERS: ADMIT Internal Medicine; ATTEND Internal Medicine
DX: I26.99 Other pulmonary embolism without acute cor pulmonale (principal); D50.9 Iron deficiency anemia, unspecified; N93.8 Other specified abnormal uterine and vaginal bleeding; N92.0 Excessive and frequent menstruation with regular cycle; M79.661 Pain in right lower leg; I10 Essential (primary) hypertension; K21.9 Gastro-esophageal reflux disease without esophagitis; Z79.899 Other long term (current) drug therapy; Z87.09 Personal history of other diseases of the respiratory system
CPT/HCPCS: 96366 ×2; 96376; 96365; 96375; 99285; 36415; 93005; 85379; 83880; 80053; 83735; 84484; 85025 ×2; 85730; 71046; 93970; 71275; G0378 ×2; J1644 ×2; J1885; Q9967

== ENCOUNTER 2019-02-19 15:46 | Inpatient (IN) | payer BC ==
--- NOTE | 2019-02-19 16:34 | ED ---
General Adult HPI - General Chief complaint: Recheck/Abnormal Lab/Rx Stated complaint: blood transfusion Time Seen by Provider: 02/19/19 16:07 Source: patient Mode of arrival: ambulatory Limitations: no limitations - History of Present Illness Initial comments: Dictation was produced using [employer] dictation software. please excuse any g rammatical, word or spelling errors. Chief Complaint: 43-year-old female past medical history of GERD, hypertension, poorly embolus presents with abnormal outpatient labs. History of Present Illness: 43-year-old female presents with abnormal outpatient labs. Patient has not shown recently and was found to have a hemoglobin of 5.8. Patient's been having heavy menstrual bleeding once a month. She states she would soaked multiple pads for about 4-5 days of month. Patient has been e valuated by her primary care physician. At this point they have no clear skull other source of bleeding. She states she's had endoscopy showing no bleeding. Patient's anticoagulation medications for blood clot. She is currently on apixaban. He reports feeling symptomatic with lightheadedness especially more long-standing. She also gets a little short of breath. She feels that she looks pale looking in the mirror. It has any lower back pain. No leg pain. The ROS documented in this emergency department record has been reviewed and confirmed by me. Those systems with pertinent positive or negative responses have been documented in the HPI. All other systems are other negative and/or noncontributory. PHYSICAL EXAM: General Impression: Alert and oriented x3, not in acute distress HEENT: Normocephalic atraumatic, extra-ocular movements intact, pupils equal and reactive to light bilaterally, mucous membranes moist, pale conjunctival Cardiovascular: Heart regular rate and rhythm, S1&S2 audible, no murmurs, rubs or gallops Chest: Lungs clear to auscultation bilaterally, no rhonchi, no wheeze, no rales Abdomen: Bowel sounds present, abdomen soft, non-tender, non-distended, no organomegaly Musculoskeletal: Pulses present and equal in all extremities, no peripheral edema Motor: no focal deficits noted Neurological: CN II-XII grossly intact, no focal motor or sensory deficits noted Skin: Intact with no visualized rashes Psych: Normal affect and mood ED course: 43 yo Female presents with anemia measured with a hemoglobin of 5.8 on outpatient on her labs. Vital signs upon arrival shows heart rate of 11, rest of vital signs within acceptable limits. Return evaluation obtained. Hemoglobin of 5.5 with microcytosis. Patient has slight elevation in PT. Metabolic panel is unremarkable. Transvaginal ultrasound shows endometrial thickening concerning for endometrial hyperplasia. Patient is agreeable for admission. 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 At this point there is strong clinical suspicion of anemia secondary to uterine bleeding versus another source. EKG interpretation: Ventricular rate 79, normal sinus rhythm,. Interval 164, care is 82, QTc 458.. No [place] prolongation, no QTC prolongation, no ST or T-wave changes noted. Overall, this EKG is unremarkable - Related Data Home Medications Medication Instructions Recorded Confirmed Ergocalciferol [Vitamin D2 50,000 unit PO WE 10/16/18 02/19/19 (DRISDOL)] Pantoprazole Sodium [Protonix] 40 mg PO DAILY 10/16/18 02/19/19 Ferrous Sulfate [Feosol] 325 mg PO DAILY 02/19/19 02/19/19 Hydrochlorothiazide 25 mg PO DAILY 02/19/19 02/19/19 Inulin/Chromium Picolinate [Fiber 1 tab PO DAILY 02/19/19 02/19/19 Gummies Chew] Rivaroxaban [Xarelto] 20 mg PO DAILY 02/19/19 02/19/19 Allergies Allergy/AdvReac Type Severity Reaction Status Date / Time No Known Allergies Allergy Verified 02/19/19 16:42 Review of Systems ROS Statement: Those systems with pertinent positive or pertinent negative responses have been documented in the HPI. ROS Other: All systems not noted in ROS Statement are negative. Past Medical History Past Medical History: GERD/Reflux, Hypertension, Pulmonary Embolus (PE) Additional Past Medical History / Comment(s): Anemia STATES HEAVY MENSTRUAL PERIODS, Hypertension- she has PRN medications at home for this. Patient hasn't taken anything for HTN in a couple weeks. History of Any Multi-Drug Resistant Organisms: None Reported Past Surgical History: No Surgical Hx Reported Additional Past Surgical History / Comment(s): EGD, colonscopy, Past Anesthesia/Blood Transfusion Reactions: No Reported Reaction Past Psychological History: No Psychological Hx Reported Smoking Status: Never smoker Past Alcohol Use History: None Reported Past Drug Use History: None Reported - Past Family History Mother Family Medical History: No Reported History General Exam Limitations: no limitations Course Vital Signs 02/19/19 02/19/19 02/19/19 16:01 18:18 18:34 Temperature 97.9 F 98.4 F 98.4 F Pulse Rate 101 H 74 83 Respiratory 18 17 17 Rate Blood Pressure 126/75 122/81 118/82 O2 Sat by Pulse 98 100 100 Oximetry Medical Decision Making - Lab Data Result diagrams: 02/19/19 16:40 02/19/19 16:40 Lab Results 02/19/19 02/19/19 02/19/19 Range/Units 16:40 16:40 16:40 WBC 4.6 (3.8-10.6) k/uL RBC 2.94 L (3.80-5.40) m/uL Hgb 5.5 L* (11.4-16.0) gm/dL Hct 20.0 L (34.0-46.0) % MCV 68.0 L (80.0-100.0) fL MCH 18.6 L (25.0-35.0) pg MCHC 27.4 L (31.0-37.0) g/dL RDW 16.1 H (11.5-15.5) % Plt Count 358 (150-450) k/uL Neutrophils % 62 % Lymphocytes % 28 % Monocytes % 7 % Eosinophils % 1 % Basophils % 0 % Neutrophils # 2.9 (1.3-7.7) k/uL Lymphocytes # 1.3 (1.0-4.8) k/uL Monocytes # 0.3 (0-1.0) k/uL Eosinophils # 0.0 (0-0.7) k/uL Basophils # 0.0 (0-0.2) k/uL Hypochromasia Marked Poikilocytosis Slight Anisocytosis Slight Microcytosis Marked PT (9.0-12.0) sec INR (<1.2) APTT (22.0-30.0) sec Sodium 141 (137-145) mmol/L Potassium 3.4 L (3.5-5.1) mmol/L Chloride 104 (98-107) mmol/L Carbon Dioxide 27 (22-30) mmol/L Anion Gap 10 mmol/L BUN 12 (7-17) mg/dL Creatinine 0.66 (0.52-1.04) mg/dL Est GFR (CKD-EPI)AfAm >90 (>60 ml/min/1.73 sqM) Est GFR (CKD-EPI)NonAf >90 (>60 ml/min/1.73 sqM) Glucose 89 (74-99) mg/dL Calcium 9.3 (8.4-10.2) mg/dL HCG, Quant <2.4 mIU/mL Blood Type A Negative Blood Type Recheck A Neg Bld Type Recheck Status No Antibody Screen NEGATIVE Crossmatch See Detail Spec Expiration Date 02/22/2019 - 233902/19/19 Range/Units 16:40 WBC (3.8-10.6) k/uL RBC (3.80-5.40) m/uL Hgb (11.4-16.0) gm/dL Hct (34.0-46.0) % MCV (80.0-100.0) fL MCH (25.0-35.0) pg MCHC (31.0-37.0) g/dL RDW (11.5-15.5) % Plt Count (150-450) k/uL Neutrophils % % Lymphocytes % % Monocytes % % Eosinophils % % Basophils % % Neutrophils # (1.3-7.7) k/uL Lymphocytes # (1.0-4.8) k/uL Monocytes # (0-1.0) k/uL Eosinophils # (0-0.7) k/uL Basophils # (0-0.2) k/uL Hypochromasia Poikilocytosis Anisocytosis Microcytosis PT 12.3 H (9.0-12.0) sec INR 1.2 H (<1.2) APTT 25.6 (22.0-30.0) sec Sodium (137-145) mmol/L Potassium (3.5-5.1) mmol/L Chloride (98-107) mmol/L Carbon Dioxide (22-30) mmol/L Anion Gap mmol/L BUN (7-17) mg/dL Creatinine (0.52-1.04) mg/dL Est GFR (CKD-EPI)AfAm (>60 ml/min/1.73 sqM) Est GFR (CKD-EPI)NonAf (>60 ml/min/1.73 sqM) Glucose (74-99) mg/dL Calcium (8.4-10.2) mg/dL HCG, Quant mIU/mL Blood Type Blood Type Recheck Bld Type Recheck Status Antibody Screen Crossmatch Spec Expiration Date Disposition Clinical Impression: Dysfunctional uterine bleeding, Anemia Disposition: ADMITTED IP TO THIS HOSP Condition: Fair Referrals: Royal Rose MD [Primary Care Provider] - 1-2 days Decision Time: 18:46
[2019-02-19 16:58] LABS: African American GFR (CKD) >90 (>60 ml/min/1.73 sqM); Anion Gap 10 mmol/L; Blood Urea Nitrogen 12 mg/dL (7-17); Calcium 9.3 mg/dL (8.4-10.2); Carbon Dioxide 27 mmol/L (22-30); Chloride 104 mmol/L (98-107); Glucose 89 mg/dL (74-99); Potassium 3.4 mmol/L (3.5-5.1); Sodium 141 mmol/L (137-145)
[2019-02-19 17:01] LABS: Anisocytosis Slight; Basophils % (A) 0 %; Eosinophils % (A) 1 %; Hypochromasia Marked; INR 1.2 (<1.2); Lymphocytes # (A) 1.3 k/uL (1.0-4.8); Lymphocytes % (A) 28 %; MCH 18.6 pg (25.0-35.0); MCHC 27.4 g/dL (31.0-37.0); Mean Platelet Volume 6.6; Microcytosis Marked; Monocytes # (A) 0.3 k/uL (0-1.0); Monocytes % (A) 7 %; Neutrophils # (A) 2.9 k/uL (1.3-7.7); Neutrophils % (A) 62 %; Partial Thromboplastin Time 25.6 sec (22.0-30.0); Platelet Count 358 k/uL (150-450); Poikilocytosis Slight; Prothrombin Time 12.3 sec (9.0-12.0); RBC 2.94 m/uL (3.80-5.40); RDW 16.1 % (11.5-15.5); WBC 4.6 k/uL (3.8-10.6)
[2019-02-19 17:07] LABS: HGB 5.5 gm/dL (11.4-16.0)
[2019-02-19 17:15] LABS: HCG,Quantitative Serum <2.4 mIU/mL
--- NOTE | 2019-02-19 18:28 | US ---
EXAMINATION TYPE: US transvaginal DATE OF EXAM: 02/19/2019 COMPARISON: NONE CLINICAL HISTORY: vaginal bleeding. heavy cycles for 3 months, low hemoglobin, TECHNIQUE: TV. Transvaginal sonographic images Date of LMP: 02/08/2019 EXAM MEASUREMENTS: Uterus: 10.1 x 6.9 x 4.3 cm Endometrial Stripe: 1.9 cm Right Ovary: 2.7 x 2.5 x 2.0 cm Left Ovary: not seen at today's exam cm 1. Uterus: Anteverted left sided myometrial fibroid noted at 3.4cm 2. Endometrium: thickened and heterogenous with hyperechoic central portion which may lend to a poly p but no vascular stalk was identified. 3. Right Ovary: wnl 4. Left Ovary: not seen due to bowel gas and shadowing left sided UT fibroid Spectral, color and waveform doppler imaging shows good arterial and venous flow within the right o vary; there is no evidence for ovarian torsion. 5. Bilateral Adnexa: wnl 6. Posterior cul-de-sac: wnl IMPRESSION: No evidence of ovarian torsion. Uterine fibroid. Thickening of the endometrium probably d ue to hyperplasia.
[2019-02-19] MEDS ORDERED: NALOXONE 0.4 MG/ML 1 ML VIAL IV PRN (18:46)
[2019-02-19] MEDS ORDERED: ACETAMINOPHEN TAB 325 MG TAB PO PRN (18:46)
[2019-02-19] MEDS ORDERED: ONDANSETRON 4 MG/2 ML VIAL IVP PRN (18:46)
[2019-02-20 00:48] LABS: Anisocytosis Slight; HCT 24.3 % (34.0-46.0); Hypochromasia Marked; MCH 21.2 pg (25.0-35.0); Microcytosis Moderate; Platelet Count 343 k/uL (150-450); Poikilocytosis Marked; RBC 3.32 m/uL (3.80-5.40); RDW 18.9 % (11.5-15.5); WBC 6.2 k/uL (3.8-10.6)
[2019-02-20 01:01] LABS: MCV 73.2 fL (80.0-100.0)
[2019-02-20 01:15] LABS: Lymphocytes # (M) 1.67 k/uL (1.0-4.8); Monocytes # (M) 0.12 k/uL (0-1.0); Neutrophils % (M) 71 %; Nucleated Red Blood Cells 0 /100 WBC (0-0); Polychromasia Present; Reactive Lymphocytes Present; Total Cells Counted 100
[2019-02-20] MEDS: SODIUM CHLORIDE 0.9% 1,000 ML IV SCH ×2 (02:06→20:47)
[2019-02-20 07:48] LABS: Anisocytosis Slight; HCT 22.3 % (34.0-46.0); Hypochromasia Marked; MCH 20.9 pg (25.0-35.0); MCHC 28.4 g/dL (31.0-37.0); MCV 73.4 fL (80.0-100.0); Mean Platelet Volume 6.7; Microcytosis Moderate; Platelet Count 335 k/uL (150-450); Poikilocytosis Marked; RBC 3.04 m/uL (3.80-5.40); RDW 18.9 % (11.5-15.5); WBC 4.6 k/uL (3.8-10.6)
[2019-02-20 08:18] LABS: HGB 6.3 gm/dL (11.4-16.0)
[2019-02-20] MEDS: PANTOPRAZOLE 40 MG TABLET PO SCH (08:42)
[2019-02-20] MEDS ORDERED: HEPARIN SODIUM,PORCINE 5,000 UNIT/ML 1 ML VIAL IV PRN (10:49)
[2019-02-20] MEDS ORDERED: HEPARIN SODIUM,PORCINE 5,000 UNIT/ML 1 ML VIAL IV ONE (10:49)
--- NOTE | 2019-02-20 11:10 | P.OBCN ---
History of Present Illness Consult date: 02/20/19 Requesting physician: Mann Miguel Reason for consult: menorrhagia (anemia) Chief complaint: Anemia, menorrhagia History of present illness: This is a pleasant 44-year-old 012 non female that presented to the hospital with severe anemia. Hemoglobin of 5.5 on admission to the [facility]. Patient states she has been being worked up for anemia. She notes her menstrual cycles to be regular every month, very heavy in nature. LMP 02/08- 02/14. Patient states in October she was admitted to the hospital with pulmonary embolism and started on your patient therapy, xarelto. She does note that her menses did become heavier after the blood thinner had been started. She states she had a negative EGD, negative colonoscopy. She does deny any hematology workup up to this point from her PE diagnosed in October. She states her primary care was managing her anticoagulation therapy. Review of Systems Constitutional: Reports fatigue, Denies chills, Denies fever Ears, nose, mouth and throat: Denies headache Cardiovascular: Denies leg edema Respiratory: Denies dyspnea Gastrointestinal: Denies nausea, Denies vomiting Genitourinary: Reports menorrhagia Menstruation: Reports menses 1-7 days Past Medical History Past Medical History: GERD/Reflux, Hypertension, Pulmonary Embolus (PE) Additional Past Medical History / Comment(s): Anemia, STATES HEAVY MENSTRUAL PERIODS, Hypertension- she has PRN medications at home for this. Patient hasn't taken anything for HTN in a couple weeks. History of Any Multi-Drug Resistant Organisms: None Reported Past Surgical History: No Surgical Hx Reported Additional Past Surgical History / Comment(s): EGD, colonscopy, Past Anesthesia/Blood Transfusion Reactions: No Reported Reaction Smoking Status: Never smoker - Past Family History Mother Family Medical History: No Reported History Medications and Allergies Home Medications Medication Instructions Recorded Confirmed Type Ergocalciferol [Vitamin D2 50,000 unit PO WE 10/16/18 02/19/19 History (DRISDOL)] Pantoprazole Sodium [Protonix] 40 mg PO DAILY 10/16/18 02/19/19 History Ferrous Sulfate [Feosol] 325 mg PO DAILY 02/19/19 02/19/19 History Hydrochlorothiazide 25 mg PO DAILY 02/19/19 02/19/19 History Inulin/Chromium Picolinate [Fiber 1 tab PO DAILY 02/19/19 02/19/19 History Gummies Chew] Rivaroxaban [Xarelto] 20 mg PO DAILY 02/19/19 02/19/19 History Allergies Allergy/AdvReac Type Severity Reaction Status Date / Time No Known Allergies Allergy Verified 02/19/19 16:42 Exam Osteopathic Statement: *. No significant issues noted on an osteopathic structural exam other than those noted in the History and Physical/Consult. Vital Signs Temp Pulse Pulse Resp BP BP Pulse Ox 02/20/19 08:45 99.4 F 96 16 128/71 100 02/20/19 04:00 69 16 02/20/19 03:00 98.5 F 69 16 116/71 96 02/20/19 00:00 82 16 02/19/19 23:00 98.5 F 82 17 120/74 99 02/19/19 20:35 98.1 F 86 17 122/69 100 02/19/19 20:00 69 16 02/19/19 19:45 98.1 F 69 17 119/84 100 02/19/19 19:14 98.4 F 74 17 126/80 98 02/19/19 18:44 98.4 F 81 18 125/90 100 02/19/19 18:34 98.4 F 83 17 118/82 100 02/19/19 18:18 98.4 F 74 17 122/81 100 02/19/19 16:01 97.9 F 101 H 18 126/75 98 Intake and Output 02/19/19 02/20/19 02/20/19 22:59 06:59 14:59 Intake Total 310 200 Balance 310 200 Intake: Oral 200 Blood Product 310 Rc As-1 Unit 310 [id number] Other: Voiding Method Toilet Toilet # Voids 1 1 Weight 74.389 kg 73.5 kg Targeted physical exam is 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 Patient notes to have nonlabored breathing her heart has regular rate and rhythm Results Result Diagrams: 02/20/19 06:24 02/19/19 16:40 Abnormal Lab Results - Last 24 Hours (Table) 02/19/19 02/19/19 02/19/19 Range/Units 16:40 16:40 16:40 RBC 2.94 L (3.80-5.40) m/uL Hgb 5.5 L* (11.4-16.0) gm/dL Hct 20.0 L (34.0-46.0) % MCV 68.0 L (80.0-100.0) fL MCH 18.6 L (25.0-35.0) pg MCHC 27.4 L (31.0-37.0) g/dL RDW 16.1 H (11.5-15.5) % PT (9.0-12.0) sec INR (<1.2) Potassium 3.4 L (3.5-5.1) mmol/L Crossmatch See Detail 02/19/19 02/20/19 02/20/19 Range/Units 16:40 00:33 06:24 RBC 3.32 L 3.04 L (3.80-5.40) m/uL Hgb 7.0 L D 6.3 L* (11.4-16.0) gm/dL Hct 24.3 L 22.3 L (34.0-46.0) % MCV 73.2 L D 73.4 L (80.0-100.0) fL MCH 21.2 L 20.9 L (25.0-35.0) pg MCHC 29.0 L 28.4 L (31.0-37.0) g/dL RDW 18.9 H 18.9 H (11.5-15.5) % PT 12.3 H (9.0-12.0) sec INR 1.2 H (<1.2) Potassium (3.5-5.1) mmol/L Crossmatch Assessment and Plan (1) Menorrhagia Current Visit: Yes Status: Acute Code(s): N92.0 - EXCESSIVE AND FREQUENT MENSTRUATION WITH REGULAR CYCLE SNOMED Code(s): 405600761 (2) Anemia Current Visit: Yes Status: Acute Code(s): D64.9 - ANEMIA, UNSPECIFIED SNOMED Code(s): 612296506 Plan: This pleasant 43-year-old non female with menorrhagia, anemia status post 1 unit of packed red blood cells. Ultrasound was reviewed with this patient in detail uterus noted to be normal 10x 6x4 cm, endometrial stripe is thickened at 1.9 cm suspicious for endometrial polyp. I do believe her menorrhagia is contributing to her anemia, and she is a candidate for an endometrial ablation. It is not uncommon for patients on blood thinners to notice an increase flow/heaviness to their cycles. This is discussed with her and all questions are answered at this time. If she is cleared from medicine, hematology and willing to do the endometrial ablation this weekend versus scheduling as an outpatient next week assuming she is discharged home. Thank you for the consult and I will follow along for recommendations regarding of endometrial ablation this weekend vs early next week.
[2019-02-20 12:05] LABS: Glucose,Whole Blood 95 mg/dL (75-99)
[2019-02-20 12:48] LABS: Anisocytosis Slight; Basophils % (A) 1 %; Eosinophils % (A) 1 %; HCT 24.2 % (34.0-46.0); Hypochromasia Marked; Lymphocytes # (A) 1.4 k/uL (1.0-4.8); Lymphocytes % (A) 30 %; MCH 21.4 pg (25.0-35.0); MCHC 29.1 g/dL (31.0-37.0); MCV 73.4 fL (80.0-100.0); Mean Platelet Volume 7.6; Microcytosis Moderate; Monocytes # (A) 0.3 k/uL (0-1.0); Monocytes % (A) 6 %; Neutrophils # (A) 2.8 k/uL (1.3-7.7); Neutrophils % (A) 60 %; Platelet Count 361 k/uL (150-450); Poikilocytosis Marked; RDW 19.2 % (11.5-15.5); WBC 4.6 k/uL (3.8-10.6)
[2019-02-20] MEDS: HEPARIN SOD,PORK IN 0.45% NACL 25,000 UNIT in 0.45% NACL 1 250ML.BAG IV SCH (12:48)
[2019-02-20 12:49] LABS: INR 1.1 (<1.2); Partial Thromboplastin Time 24.9 sec (22.0-30.0); Prothrombin Time 11.1 sec (9.0-12.0)
--- NOTE | 2019-02-20 13:36 | P.PN ---
Progress Note - Text Progress Note Date: 02/20/19 Thanks for the consult. Full consult to be dictated -- Patient with recent DVT and PE, 3 months ago, while on NUVARING, which would be considered for potential provoking factor. Patient on xarelto since - History of ongoing heavy menstrual losses with microcytic anemia - Admitted with worsening symptomatic anemia. Recent period ended 02/14/19 - Admitted with hemoglobin of 6.3. Post transfusion increased to 7 then dropped to 6.3. GI workup negative last year - Last xarelto dose yesterday a.m. - Agree with LOGISTICIAN consult, and plan for ablation. Menstrual losses are the most likely cause of her anemia, and would need to be treated, as she will need ongoing anticoagulation - The drop in hemoglobin noted posttransfusion inpatient, is nonspecific as lab variation, dilution, as well as faster breakdown of transfused blood cannot account for the same. Continue to monitor and transfuse to keep hemoglobin greater than 7 - Will check for other causes such as hemolysis. DARIUS was negative however - Recommend continued anticoagulation, given recent PE, and upcoming procedure. We will order IV heparin, as has shortest half-life and reversibility.. IV heparin 2-4 hours prior to procedure - Anemia workup, with plan for IV iron, assuming deficiency is confirmed, as the patient has not had a good response to oral iron ( however blood transfusions may raise iron studies temporarily )
--- NOTE | 2019-02-20 15:18 | P.HPIM ---
History of Present Illness H&P Date: 02/20/19 Chief Complaint: Weak and tired History of presenting complaint: This is a very pleasant 43 patient of [place] decided follows with Dr. womack out of [place]. Back in October of this year patient to presented to the hospital with pleuritic left-sided chest pain. Found to have acute PE. Started on supplemental. Toprol-XL lower extremity was negative for DVT. Patient is the started wearing NOVARING for 2 months and that was felt to be possibly contribution to presentation. For last 3 months patient is feeling very weak tired rundown dizzy lightheaded. Patient was found to have a hemoglobin of 5.5 and care unit of blood. This morning hemoglobin was again less than 7 with another unit of blood was ordered. Patient is always had heavy periods all her life but since she's been on Xarelto she's noticed that she's been having heavy menstrual periods heavy for at least 4-5 days. Apparently she had a negative GI workup in the past. Denies any dark stools. Hematology and gynecology were consulted. Review of systems: GEN.: Weak tired dizzy EYES: None HEENT: None NECK: None RESPIRATORY: None CARDIOVASCULAR: None GASTROINTESTINAL: None GENITOURINARY: Heavy menstrual periods MUSCULOSKELETAL: None LYMPHATICS: None HEMATOLOGICAL: None PSYCHIATRY: None NEUROLOGICAL: None Past medical history: Pulmonary embolism in October 2018, GERD, had taken some blood pressure pills the past. Social history: Lives with -2 daughters. Does not stop smoke or drink at all. Is employed. Family history: Reviewed, noncontributory to presentation. No family history of blood clot disorders. Physical examination: VITAL SIGNS: 97.9, 101, 18, 126/75, 98% on room air GENERAL: BMI 23.3, sitting on bed, comfortable. EYES: Pupils equal. Conjunctiva palel. HEENT: External appearance of nose and ears normal, oral cavity grossly normal. NECK: JVD not raised; masses not palpable. HEART: First and second heart sounds are normal; no edema. LUNGS: Respiratory rate normal; clear to auscultation. ABDOMEN: Soft, nontender, liver spleen not palpable, no masses palpable. PSYCH: Alert and oriented x3; mood and affect normal. NEUROLOGICAL: Cranial nerves grossly intact; no facial asymmetry, power and sensation grossly intact. LYMPHATICS: No lymph nodes palpable in the axilla and neck INVESTIGATIONS, reviewed in the clinical context: White count 6.2 hemoglobin 5.5 MCV 68. History 58 potassium 3.4 Creatinine 0.66 transvaginal ultrasound left-sided fibroid, endometrium thickened Assessment: -Acute severe microcytic anemia likely from blood loss from heavy menstrual periods resulting from underlying uterine fibroid and endometrial hyperplasia - pulmonary embolism in October 2018 for which patient is on Xarelto -IV heparin monitoring Plan: Patient seen by PROPERTY MANAGEMENT SUPERVISOR. Patient will need ablation. On IV heparin. This can be discontinued temporarily before the procedure. She did need for any GI workup at this point. Care was discussed in detail with the patient question were answered. Also seen by Dr. Grijalva from hematology. Past Medical History Past Medical History: GERD/Reflux, Hypertension, Pulmonary Embolus (PE) Additional Past Medical History / Comment(s): Anemia, STATES HEAVY MENSTRUAL PERIODS, Hypertension- she has PRN medications at home for this. Patient hasn't taken anything for HTN in a couple weeks. History of Any Multi-Drug Resistant Organisms: None Reported Past Surgical History: No Surgical Hx Reported Additional Past Surgical History / Comment(s): EGD, colonscopy, Past Anesthesia/Blood Transfusion Reactions: No Reported Reaction Smoking Status: Never smoker - Past Family History Mother Family Medical History: No Reported History Medications and Allergies Home Medications Medication Instructions Recorded Confirmed Type Ergocalciferol [Vitamin D2 50,000 unit PO WE 10/16/18 02/19/19 History (DRISDOL)] Pantoprazole Sodium [Protonix] 40 mg PO DAILY 10/16/18 02/19/19 History Ferrous Sulfate [Feosol] 325 mg PO DAILY 02/19/19 02/19/19 History Hydrochlorothiazide 25 mg PO DAILY 02/19/19 02/19/19 History Inulin/Chromium Picolinate [Fiber 1 tab PO DAILY 02/19/19 02/19/19 History Gummies Chew] Rivaroxaban [Xarelto] 20 mg PO DAILY 02/19/19 02/19/19 History Allergies Allergy/AdvReac Type Severity Reaction Status Date / Time No Known Allergies Allergy Verified 02/19/19 16:42 Physical Exam Vitals: Vital Signs Temp Pulse Pulse Resp BP BP Pulse Ox 02/20/19 08:45 99.4 F 96 16 128/71 100 02/20/19 04:00 69 16 02/20/19 03:00 98.5 F 69 16 116/71 96 02/20/19 00:00 82 16 02/19/19 23:00 98.5 F 82 17 120/74 99 02/19/19 20:35 98.1 F 86 17 122/69 100 02/19/19 20:00 69 16 02/19/19 19:45 98.1 F 69 17 119/84 100 02/19/19 19:14 98.4 F 74 17 126/80 98 02/19/19 18:44 98.4 F 81 18 125/90 100 02/19/19 18:34 98.4 F 83 17 118/82 100 02/19/19 18:18 98.4 F 74 17 122/81 100 02/19/19 16:01 97.9 F 101 H 18 126/75 98 Intake and Output 02/19/19 02/20/19 02/20/19 22:59 06:59 14:59 Intake Total 310 200 Balance 310 200 Intake: Oral 200 Blood Product 310 Rc As-1 Unit 310 [id number] Other: Voiding Method Toilet Toilet # Voids 1 1 Weight 74.389 kg 73.5 kg Results CBC & Chem 7: 02/20/19 12:08 02/19/19 16:40 Labs: Abnormal Lab Results - Last 24 Hours (Table) 02/19/19 02/19/19 02/19/19 Range/Units 16:40 16:40 16:40 RBC 2.94 L (3.80-5.40) m/uL Hgb 5.5 L* (11.4-16.0) gm/dL Hct 20.0 L (34.0-46.0) % MCV 68.0 L (80.0-100.0) fL MCH 18.6 L (25.0-35.0) pg MCHC 27.4 L (31.0-37.0) g/dL RDW 16.1 H (11.5-15.5) % PT (9.0-12.0) sec INR (<1.2) Potassium 3.4 L (3.5-5.1) mmol/L Crossmatch See Detail 02/19/19 02/20/19 02/20/19 Range/Units 16:40 00:33 06:24 RBC 3.32 L 3.04 L (3.80-5.40) m/uL Hgb 7.0 L D 6.3 L* (11.4-16.0) gm/dL Hct 24.3 L 22.3 L (34.0-46.0) % MCV 73.2 L D 73.4 L (80.0-100.0) fL MCH 21.2 L 20.9 L (25.0-35.0) pg MCHC 29.0 L 28.4 L (31.0-37.0) g/dL RDW 18.9 H 18.9 H (11.5-15.5) % PT 12.3 H (9.0-12.0) sec INR 1.2 H (<1.2) Potassium (3.5-5.1) mmol/L Crossmatch Thrombosis Risk Factor Assmnt - Choose All That Apply Any of the Below Risk Factors Present?: Yes Each Factor Represents 1 point: Age 41-60 years Other Risk Factors: Yes Each Risk Factor Represents 3 Points: History of DVT/PE Other congenital or acquired thrombophilia - If yes, enter type in comment: No Thrombosis Risk Factor Assessment Total Risk Factor Score: 4 Thrombosis Risk Factor Assessment Level: Moderate Risk
[2019-02-20] MEDS ORDERED: MISOPROSTOL 200 MCG TAB VAGINAL ONE (22:00)
--- NOTE | 2019-02-20 23:39 | P.CONS ---
History of Present Illness - Reason for Consult Consult date: 02/20/19 Microcytic anemia - History of Present Illness The patient is a 43-year-old white female with a complicated past medical history. The patient has a long-standing history of heavy periods, as well as anemia dating back to at least 2016. In 10/21 she was found to have a left lower lobe segmental PE. Dopplers were negative for DVT at that time. The patient was using the NUVARING for contraception at that time. The patient was then placed on xarelto, and since then states that periods have been heavier. During her admission in 10/21 hemoglobin was in the 7 range with MCV in the 60 range. She was placed on oral iron twice a day but has not been taking it consistently due to constipation. She was admitted to the hospital with progressive fatigue and some shortness of breath on exertion. Hemoglobin was found to be 5.5. She received 1 unit of PRBC, and consult was placed for further evaluation and recommendations. Her last period ended 02/14. She denies any other obvious bleeding No other personal history of VTE, or family history of the same. No history of miscarriages Review of Systems Constitutional: Reports fatigue, Reports weakness Eyes: denies blurred vision, denies pain Ears: deny: decreased hearing, ear discharge, earache, tinnitus Ears, nose, mouth and throat: Denies headache, Denies sore throat Cardiovascular: Reports decreased exercise tolerance, Reports dyspnea on exertion Respiratory: Reports as per HPI, Reports dyspnea Gastrointestinal: Reports constipation Genitourinary: Denies dysuria, Denies hematuria Menstruation: Reports period heavy Musculoskeletal: Denies myalgias Integumentary: Denies pruritus, Denies rash Neurological: Reports weakness Psychiatric: Denies anxiety, Denies depression Endocrine: Reports fatigue, Reports palpitations Hematologic/Lymphatic: Reports as per HPI, Reports thrombophilia Past Medical History Past Medical History: GERD/Reflux, Hypertension, Pulmonary Embolus (PE) Additional Past Medical History / Comment(s): Anemia, STATES HEAVY MENSTRUAL PERIODS, Hypertension- she has PRN medications at home for this. Patient hasn't taken anything for HTN in a couple weeks. History of Any Multi-Drug Resistant Organisms: None Reported Past Surgical History: No Surgical Hx Reported Additional Past Surgical History / Comment(s): EGD, colonscopy, Past Anesthesia/Blood Transfusion Reactions: No Reported Reaction Smoking Status: Never smoker - Past Family History Mother Family Medical History: No Reported History Medications and Allergies Home Medications Medication Instructions Recorded Confirmed Type Ergocalciferol [Vitamin D2 50,000 unit PO WE 10/16/18 02/19/19 History (DRISDOL)] Pantoprazole Sodium [Protonix] 40 mg PO DAILY 10/16/18 02/19/19 History Ferrous Sulfate [Feosol] 325 mg PO DAILY 02/19/19 02/19/19 History Hydrochlorothiazide 25 mg PO DAILY 02/19/19 02/19/19 History Inulin/Chromium Picolinate [Fiber 1 tab PO DAILY 02/19/19 02/19/19 History Gummies Chew] Rivaroxaban [Xarelto] 20 mg PO DAILY 02/19/19 02/19/19 History Allergies Allergy/AdvReac Type Severity Reaction Status Date / Time No Known Allergies Allergy Verified 02/19/19 16:42 Physical Exam Vitals: Vital Signs Temp Pulse Pulse Resp BP BP Pulse Ox 02/20/19 20:00 97.9 F 76 17 120/81 95 02/20/19 15:27 98.2 F 79 16 129/74 02/20/19 13:15 98.7 F 87 16 119/76 02/20/19 12:46 98.2 F 88 16 123/76 02/20/19 12:35 98.9 F 91 16 126/84 02/20/19 12:00 98 F 85 16 128/78 100 02/20/19 08:45 99.4 F 96 16 128/71 100 02/20/19 04:00 69 16 02/20/19 03:00 98.5 F 69 16 116/71 96 02/20/19 00:00 82 16 02/19/19 23:00 98.5 F 82 17 120/74 99 Intake and Output 02/20/19 02/20/19 02/20/19 06:59 14:59 22:59 Intake Total 422 801 Balance 422 801 Intake: Intake, IV Titration 29 Amount Heparin Sod,Pork in 0.45% 9 NaCl 25,000 unit In 0.45 % NaCl 1 250ml.bag @ 12 UNITS/KG/HR 8.82 mls/hr IV .Q24H [facility] Rx#: [id number] Sodium Chloride 0.9% 1, 20 000 ml @ 20 mls/hr IV . Q24H [facility] Rx#:[id number] Oral 422 462 Blood Product 0 310 Rc As-1 Unit 0 310 [id number] Other: Voiding Method Toilet Toilet # Voids 1 3 1 Weight 73.5 kg - Constitutional General appearance: no acute distress - EENT Eyes: EOMI, PERRLA ENT: hearing grossly normal, normal oropharynx - Neck Neck: no lymphadenopathy Thyroid: bilateral: normal size - Respiratory Respiratory: bilateral: CTA - Cardiovascular Rhythm: regular Heart sounds: normal: S1, S2 - Gastrointestinal General gastrointestinal: normal bowel sounds, soft - Integumentary Integumentary: normal - Neurologic Neurologic: CNII-XII intact - Musculoskeletal Musculoskeletal: generalized weakness, strength equal bilaterally - Psychiatric Psychiatric: A&O x's 3, appropriate affect Results CBC & Chem 7: 02/20/19 12:08 02/19/19 16:40 Labs: Abnormal Lab Results - Last 24 Hours (Table) 02/19/19 02/20/19 02/20/19 Range/Units 16:40 00:33 06:24 RBC 3.32 L 3.04 L (3.80-5.40) m/uL Hgb 7.0 L D 6.3 L* (11.4-16.0) gm/dL Hct 24.3 L 22.3 L (34.0-46.0) % MCV 73.2 L D 73.4 L (80.0-100.0) fL MCH 21.2 L 20.9 L (25.0-35.0) pg MCHC 29.0 L 28.4 L (31.0-37.0) g/dL RDW 18.9 H 18.9 H (11.5-15.5) % APTT (22.0-30.0) sec Crossmatch See Detail 02/20/19 02/20/19 Range/Units 12:08 19:04 RBC 3.30 L (3.80-5.40) m/uL Hgb 7.0 L (11.4-16.0) gm/dL Hct 24.2 L (34.0-46.0) % MCV 73.4 L (80.0-100.0) fL MCH 21.4 L (25.0-35.0) pg MCHC 29.1 L (31.0-37.0) g/dL RDW 19.2 H (11.5-15.5) % APTT 71.4 H (22.0-30.0) sec Crossmatch Comments: TVUS report reviewed Chest x-ray: report reviewed CT scan - chest: report reviewed Venous US: report reviewed Assessment and Plan (1) Anemia Narrative/Plan: The patient has chronic anemia with progression, associated with microcytosis. She has an ongoing history of heavy periods. He has been or oral iron supplementation for comparatively short period of time but has not taken it consistently. The clinical picture this appears to be quite consistent with iron deficiency anemia from menstrual losses. The patient's hemoglobin was 5.5 on admission and after transfusion increased to 7. Repeat was 6.3. As increase in hemoglobin after 1 unit is usually in the range of 0.7-1.5 g/dL, this degree of change is nonspecific, and can represent a variation in measurement, as well as normal breakdown of transfused blood. As noted, there is no evidence of bleeding elsewhere. Lab work for anemia will be ordered to confirm the above impression and rule out other causes. (And studies however may be affected by blood transfusion) As patient's tolerance of, and compliance with oral iron has not been satisfactory, she will be treated with IV iron going forward. She was advised that she will need regular monitoring as an outpatient with IV iron as needed Current Visit: Yes Status: Acute Code(s): D64.9 - ANEMIA, UNSPECIFIED SNOMED Code(s): 477340806 (2) Menorrhagia Narrative/Plan: As noted above, this is felt to be the most likely cause of her anemia. The patient has been seen by CUSTODIAL MAINTENANCE WORKER. Agree with plan for ablation Current Visit: Yes Status: Acute Code(s): N92.0 - EXCESSIVE AND FREQUENT MENSTRUATION WITH REGULAR CYCLE SNOMED Code(s): 315840522 (3) Pulmonary embolism Narrative/Plan: The patient was diagnosed with papillary embolism just about 3 months ago. This is felt to be provoked event, as the patient was using NUVARING which is associated with similar possibly increased risk of VTE compared to mixed oral contraceptives. A minimum of 6 months of treatment would be recommended, assuming that the patient falls into a low risk profile based on repeat imaging and d-dimer levels at that time. As the patient is only at the three-month katerine, and is hospitalized with plans for a pelvic procedure, it would be recommended that she stay on anticoagulation as much as possible. As she has an upcoming procedure, I would recommend treating her with IV heparin, as this has the shortest of life on stopping infusion, and easy reversibility if needed. I would recommend stopping at 2-4 hours prior to the procedure, and resuming after as soon as okay with CUSTODIAL MAINTENANCE WORKER. If stable, subsequently, she can be transitioned back to xarelto Current Visit: No Status: Acute Code(s): I26.99 - OTHER PULMONARY EMBOLISM WITHOUT ACUTE COR PULMONALE SNOMED Code(s): 52202795 Plan: The above plan, and rationale for same, discussed in detail with patient and family
[2019-02-21 06:55] VITALS: RESP 16
[2019-02-21 06:58] LABS: Anisocytosis Moderate; HCT 26.4 % (34.0-46.0); HGB 7.8 gm/dL (11.4-16.0); Hypochromasia Marked; MCH 22.7 pg (25.0-35.0); MCHC 29.6 g/dL (31.0-37.0); MCV 76.9 fL (80.0-100.0); Mean Platelet Volume 6.6; Microcytosis Moderate; Platelet Count 324 k/uL (150-450); Poikilocytosis Marked; RBC 3.43 m/uL (3.80-5.40); RDW 20.4 % (11.5-15.5); WBC 3.6 k/uL (3.8-10.6)
[2019-02-21 11:16] LABS: Band Neutrophils % 1 %; Eosinophils # (M) 0.04 k/uL (0-0.7); Monocytes # (M) 0.47 k/uL (0-1.0); Neutrophils % (M) 49 %; Nucleated Red Blood Cells 0 /100 WBC (0-0); Total Cells Counted 100
[2019-02-21 11:17] LABS: Large Platelets Present
[2019-02-21] MEDS ORDERED: fentaNYL (PF) 50 MCG/ML 2 ML AMP ONE (11:42)
[2019-02-21] MEDS ORDERED: IV FLUID CONTINUATION 1,000 ML IV ONE (11:42)
[2019-02-21] MEDS ORDERED: MIDAZOLAM 2 MG/2 ML VIAL ONE (11:42)
[2019-02-21] MEDS ORDERED: LIDOCAINE 1% INJ 10MG/ML (20 ML MDV) ONE (11:42)
[2019-02-21] MEDS ORDERED: PROPOFOL 10 MG/ML 20 ML VIAL IV ONE (11:42)
[2019-02-21] MEDS ORDERED: KETOROLAC 30 MG/ML 1 ML VIAL ONE (11:42)
--- NOTE | 2019-02-21 12:12 | P.OP ---
Date of Procedure: 02/21/19 Preoperative Diagnosis: Menorrhagia, anemia, thickened endometrial lining on ultrasound Postoperative Diagnosis: Same Procedure(s) Performed: Hysteroscopy, dilation and curettage, endometrial ablation with NovaSure Anesthesia: MAC Surgeon: Maribel Cannon Estimated Blood Loss (ml): 5 Urine output (ml): 200 Pathology: other (Endometrial curettings) Condition: stable Disposition: PACU Indications for Procedure: Heavy menstrual bleeding on Cymbalta, anemia. On ultrasound she had a thickened endometrial stripe, suspicious for polyp Operative Findings: Proliferative endometrium with multiple polyps noted on hysteroscopy Description of Procedure: Patient was seen in the preoperative area and informed consent was obtained. Procedure was reviewed and all cautions were answered. Patient was taken to the operating suite where general anesthesia was obtained without difficulty by the anesthesia department. She was prepped and draped in the normal sterile fashion in the dorsal lithotomy position. A red rubber catheter was used to drain the bladder clear yellow urine. Weighted speculum was placed in the posterior vaginal vault, the anterior lip of the cervix is visualized and grasped with sin gle-tooth tenaculum. The cervix was then serially dilated to 16-Mosotho, a hysteroscope was then placed through the cervix and toward the endometrial cavity the above-noted findings were visualized. Multiple pictures were taken and hysteroscope was removed and a sharp curettage was performed until gritty texture was noted in all 4 quadrants. A large amount of specimen was noted. The uterus was then sounded to 8 total centimeters in length the NovaSure device was opened and operated according to infection obstruction after the cavity assessment was passed. Cycle was completed for 105 seconds, afterwards the device was removed without difficulty the single-tooth tenaculum was taken off of the anterior lip the cervix and hemostasis was appreciated. All counts were correct 2 patient tolerated procedure well, and was taken the recovery room awake in stable condition.
--- NOTE | 2019-02-21 12:14 | P.PN ---
Subjective Progress Note Date: 02/21/19 Principal diagnosis: Menorrhagia, anemia, thickened endometrial stripe noted on ultrasound Patient was taken back to the operating suite for endometrial ablation operative note is on chart. Patient did well and will be returning back to the floor. Objective - Vital Signs Vital signs: Vital Signs Temp 97.4 F L 02/21/19 10:52 Pulse 74 02/21/19 10:52 Resp 16 02/21/19 10:52 BP 114/75 02/21/19 10:52 Pulse Ox 99 02/21/19 10:52 Intake & Output 02/20/19 02/21/19 02/21/19 18:59 06:59 18:59 Intake Total 954 269 167.139 Output Total 350 5 Balance 954 -81 162.139 Weight 74.8 kg Intake: Intake, IV Titration 29 167.139 Amount Heparin Sod,Pork in 0.45% 9 167.139 NaCl 25,000 unit In 0.45 % NaCl 1 250ml.bag @ 12 UNITS/KG/HR 8.82 mls/hr IV .Q24H [facility] Rx#: [id number] Sodium Chloride 0.9% 1, 20 000 ml @ 20 mls/hr IV . Q24H [facility] Rx#:[id number] Oral 644 240 Blood Product 310 Rc As-1 Unit 310 [id number] Output: Urine 350 Estimated Blood Loss 5 Other: Voiding Method Toilet # Voids 3 1 1 - Constitutional General appearance: Present: average body habitus, cooperative, no acute distress - Labs CBC & Chem 7: 02/21/19 05:58 02/19/19 16:40 Labs: Abnormal Lab Results - Last 24 Hours (Table) 02/19/19 02/20/19 02/20/19 Range/Units 16:40 12:08 19:04 WBC (3.8-10.6) k/uL RBC 3.30 L (3.80-5.40) m/uL Hgb 7.0 L (11.4-16.0) gm/dL Hct 24.2 L (34.0-46.0) % MCV 73.4 L (80.0-100.0) fL MCH 21.4 L (25.0-35.0) pg MCHC 29.1 L (31.0-37.0) g/dL RDW 19.2 H (11.5-15.5) % APTT 71.4 H (22.0-30.0) sec Crossmatch See Detail 02/21/19 Range/Units 05:58 WBC 3.6 L (3.8-10.6) k/uL RBC 3.43 L (3.80-5.40) m/uL Hgb 7.8 L (11.4-16.0) gm/dL Hct 26.4 L (34.0-46.0) % MCV 76.9 L (80.0-100.0) fL MCH 22.7 L (25.0-35.0) pg MCHC 29.6 L (31.0-37.0) g/dL RDW 20.4 H (11.5-15.5) % APTT (22.0-30.0) sec Crossmatch Assessment and Plan (1) Menorrhagia Current Visit: Yes Status: Acute Code(s): N92.0 - EXCESSIVE AND FREQUENT MENSTRUATION WITH REGULAR CYCLE SNOMED Code(s): 806196096 (2) Anemia Current Visit: Yes Status: Acute Code(s): D64.9 - ANEMIA, UNSPECIFIED SNOM ED Code(s): 871340748 (3) S/P endometrial ablation Current Visit: Yes Status: Acute Code(s): Z98.890 - OTHER SPECIFIED POSTPROCEDURAL STATES SNOMED Code(s): 296029403289334 Plan: Patient did well with ablation today, endometrial curettings were sent to pathology for analysis to rule out hyperplasia. We'll sign off at this point she should have any further concerns please feel free to contact me, I will see this patient in follow-up 2 weeks after procedure was completed. Thank you
[2019-02-21 12:21] VITALS: TEMP 97.6
[2019-02-21] MEDS: SODIUM CHLORIDE 0.9% 1,000 ML IV SCH (12:25)
[2019-02-21] MEDS: PANTOPRAZOLE 40 MG TABLET PO SCH (14:10)
[2019-02-21] MEDS: HEPARIN SOD,PORK IN 0.45% NACL 25,000 UNIT in 0.45% NACL 1 250ML.BAG IV SCH (14:16)
[2019-02-21] MEDS ORDERED: SODIUM FERRIC GLUCONAT-SUCROSE 125 MG in SODIUM CHLORIDE 0.9% 100 ML IVPB SCH (14:45)
[2019-02-21 15:04] VITALS: BP 126/83; PULSE 70
--- NOTE | 2019-02-21 15:13 | P.PN ---
Subjective Progress Note Date: 02/21/19 The patient denies any obvious bleeding today. She underwent ablation earlier. Operative note reviewed. Heparin has been restarted Objective - Vital Signs Vital signs: Vital Signs Temp 97.6 F 02/21/19 12:14 Pulse 70 02/21/19 15:04 Resp 16 02/21/19 15:04 BP 126/83 02/21/19 15:04 Pulse Ox 100 02/21/19 15:04 Intake & Output 02/20/19 02/21/19 02/21/19 18:59 06:59 18:59 Intake Total 954 269 267.139 Output Total 350 5 Balance 954 -81 262.139 Weight 74.8 kg Intake: IV 100 Intake, IV Titration 29 167.139 Amount Heparin Sod,Pork in 0.45% 9 167.139 NaCl 25,000 unit In 0.45 % NaCl 1 250ml.bag @ 12 UNITS/KG/HR 8.82 mls/hr IV .Q24H [facility] Rx#: [id number] Sodium Chloride 0.9% 1, 20 000 ml @ 20 mls/hr IV . Q24H [facility] Rx#:[id number] Oral 644 240 Blood Product 310 Rc As-1 Unit 310 [id number] Output: Urine 350 Estimated Blood Loss 5 Other: Voiding Method Toilet # Voids 3 1 1 - Constitutional General appearance: Present: no acute distress - EENT Eyes: Present: EOMI ENT: Present: hearing grossly normal, normal oropharynx - Respiratory Respiratory: bilateral: CTA - Cardiovascular Rhythm: regular Heart sounds: normal: S1, S2 - Gastrointestinal General gastrointestinal: Present: normal bowel sounds, soft - Integumentary Integumentary: Present: normal - Neurologic Neurologic: Present: CNII-XII intact - Musculoskeletal Musculoskeletal: Present: generalized weakness - Psychiatric Psychiatric: Present: A&O x's 3, appropriate affect - Labs CBC & Chem 7: 02/21/19 05:58 02/19/19 16:40 Labs: Abnormal Lab Results - Last 24 Hours (Table) 02/19/19 02/20/19 02/21/19 Range/Units 16:40 19:04 05:58 WBC 3.6 L (3.8-10.6) k/uL RBC 3.43 L (3.80-5.40) m/uL Hgb 7.8 L (11.4-16.0) gm/dL Hct 26.4 L (34.0-46.0) % MCV 76.9 L (80.0-100.0) fL MCH 22.7 L (25.0-35.0) pg MCHC 29.6 L (31.0-37.0) g/dL RDW 20.4 H (11.5-15.5) % APTT 71.4 H (22.0-30.0) sec Crossmatch See Detail Assessment and Plan (1) Anemia Narrative/Plan: Clinically due to iron deficiency. Lab work up is pending. Hemoglobin is stable in the safe range, greater than 7.8, after transfusion yesterday. No obvious bleeding has been noted. - Case discussed with the admitting service. She'll receive a dose of IV iron in the hospital. She'll be discharged with oral iron once a day as she had not been tolerating the twice a day dosing well and therefore has not been compliant with that. - Follow-up in the office in about 3 weeks or so to repeat labs Current Visit: Yes Status: Acute Code(s): D64.9 - ANEMIA, UNSPECIFIED SNOMED Code(s): 566294865 (2) Menorrhagia Narrative/Plan: Status post-ablation today. Awaiting pathology. Patient has been advised follow-up with WET WASHER MACHINE as an outpatient in a few weeks Current Visit: Yes Status: Acute Code(s): N92.0 - EXCESSIVE AND FREQUENT MENSTRUATION WITH REGULAR CYCLE SNOMED Code(s): 578157641 (3) Pulmonary embolism Narrative/Plan: The patient's IV heparin was resumed after procedure. Case discussed with the admitting service. IV heparin will be discontinued later this afternoon and the patient will receive a dose of Lovenox. She can then be discharged home, and resume her Xarelto in the morning at her scheduled time. - Avoid all hormonal contraception - Treatment for at least 6 months, at which time she would be a candidate for discontinuation, if in a favorable risk group based on repeat a CTA and d-dimer levels Current Visit: No Status: Acute Code(s): I26.99 - OTHER PULMONARY EMBOLISM WITHOUT ACUTE COR PULMONALE SNOMED Code(s): 83978382
[2019-02-21] MEDS ORDERED: RIVAROXABAN 20 MG TAB PO ONE (17:30)
[2019-02-21] MEDS ORDERED: ENOXAPARIN 80 MG/0.8 ML SYRINGE SQ SCH (18:00)
--- NOTE | 2019-02-22 00:16 | P.DS ---
Providers Date of admission: 02/19/19 18:46 Expected date of discharge: 02/21/19 Attending physician: Mann Miguel Consults: 02/19/19 18:47 Consult Physician Routine Consulting Provider: Navi Grijalva Consult Reason/Comments: bleeding Do you want consulting provider notified?: Yes Consult Physician Routine Consulting Provider: Maribel Whitman Consult Reason/Comments: endometrial thickening Do you want consulting provider notified?: Yes Primary care physician: Royal Rose Hospital Course: Chief Complaint: Weak and tired Hospital course: This is a very pleasant 43 patient of [place] decided follows with Dr. rose out of [place]. Back in October of this year patient to presented to the hospital with pleuritic left-sided chest pain. Found to have acute PE. Started on supplemental. Toprol-XL lower extremity was negative for DVT. Patient is the started wearing NOVARING for 2 months and that was felt to be possibly contribution to presentation. For last 3 months patient is feeling very weak tired rundown dizzy lightheaded. Patient was found to have a hemoglobin of 5.5 and care unit of blood. This morning hemoglobin was again less than 7 with another unit of blood was ordered. Patient is always had heavy periods all her life but since she's been on Xarelto she's noticed that she's been having heavy menstrual periods heavy for at least 4-5 days. Apparently she had a negative GI workup in the past. Denies any dark stools. Hematology and gynecology were consulted. Patient did receive 2 units of blood. Hemoglobin went up from 6.3 up to 7.8. We'll also transfused 125 mg off iron. Early today patient underwent hysteroscopy with D&C and endometrial ablation with NovaSure by Dr. Romo. Postprocedure doing well. Discussed with Dr. Grijalva. Okay to discharge the patient listed today. IV heparin was to be discontinued later today. Patient will receive a dose of Lovenox. And patient will resume her Xarelto starting tomorrow. Care was discussed with the patient question were answered. Discussed with the nurse in detail. Discussion and discharge planning more than 35 minutes Consultation: Dr. Clarissa whitman from gynecology Dr. Grijalva from hematology Physical examination: VITAL SIGNS: Per recent 0.6, 70, 16, 126/83 100% room air GENERAL: Sitting up, comfortable. EYES: Pupils equal. Conjunctiva pale HEENT: External appearance of nose and ears normal, oral cavity grossly normal. NECK: JVD not raised; masses not palpable. HEART: First and second heart sounds are normal; no edema. LUNGS: Respiratory rate normal; clear to auscultation. ABDOMEN: Soft, nontender, liver spleen not palpable, no masses palpable. PSYCH: Alert and oriented x3; mood and affect normal. INVESTIGATIONS, reviewed in the clinical context: Hemoglobin 7.8 Previous testing White count 6.2 hemoglobin 5.5 MCV 68. Bun 58 potassium 3.4 Creatinine 0.66 transvaginal ultrasound left-sided fibroid, endometrium thickened Discharge diagnosis: -Acute severe microcytic anemia likely from blood loss from heavy menstrual periods resulting from underlying uterine fibroid and endometrial hyperplasia i.e.-menorrhagia. Patient did receive 2 units of blood - pulmonary embolism in October 2018 for which patient is on Xarelto -IV heparin monitoring Disposition: Home Patient Condition at Discharge: Stable Plan - Discharge Summary Discharge Rx Participant: No New Discharge Prescriptions: Continue Pantoprazole Sodium [Protonix] 40 mg PO DAILY Ergocalciferol [Vitamin D2 (DRISDOL)] 50,000 unit PO WE Inulin/Chromium Picolinate [Fiber Gummies Chew] 1 tab PO DAILY Hydrochlorothiazide 25 mg PO DAILY No Action Rivaroxaban [Xarelto] 20 mg PO DAILY Ferrous Sulfate [Iron (65 MG Elemental)] 325 mg PO DAILY Discharge Medication List Ergocalciferol [Vitamin D2 (DRISDOL)] 50,000 unit PO WE 10/16/18 [History] Pantoprazole Sodium [Protonix] 40 mg PO DAILY 10/16/18 [History] Ferrous Sulfate [Iron (65 MG Elemental)] 325 mg PO DAILY 02/19/19 [History] Hydrochlorothiazide 25 mg PO DAILY 02/19/19 [History] Inulin/Chromium Picolinate [Fiber Gummies Chew] 1 tab PO DAILY 02/19/19 [History] Rivaroxaban [Xarelto] 20 mg PO DAILY 02/19/19 [History] Follow up Appointment(s)/Referral(s): Navi Grijalva MD [STAFF PHYSICIAN] - 2 Weeks (please call office friday to make follow up appointment) Royal Rose MD [Primary Care Provider] - 1 Week (please call office to make follow up appointment ) Maribel Whitman DO [Doctor of Osteopathic Medicine] - 2 Weeks (please call office to make follow up appointment ) Patient Instructions/Handouts: Dilation and Curettage (DC), Hysteroscopy (DC), Endometrial Ablation (DC) Discharge/Stand Alone Forms: Work/Release Restrictions Form, Work/School Release / Restrict Discharge Disposition: HOME SELF-CARE
[2019-02-22 14:01] LABS: Iron Saturation 30.05 (12.00-45.00)
[2019-02-22 14:35] LABS: Ferritin 1.4 ng/mL (10.0-291.0)
== END 2019-02-21 19:00 | disposition home or self-care (01) | DRG 742 ==
LOC: EC 15:46 → 3SCARD 18:46
PROVIDERS: ADMIT Hospitalist; ATTEND Hospitalist
PROC: 0U5B8ZZ Destruction of Endometrium, Via Natural or Artificial Opening Endoscopic (ICD-10-PCS; principal; 2019-02-19)
PROC: 30230N1 Transfusion of Nonautologous Red Blood Cells into Peripheral Vein, Open Approach (ICD-10-PCS; 2019-02-19)
PROC: 10D07Z8 Extraction of Products of Conception, Other, Via Natural or Artificial Opening (ICD-10-PCS; 2019-02-19)
DX: N85.00 Endometrial hyperplasia, unspecified (principal); D62 Acute posthemorrhagic anemia; N92.0 Excessive and frequent menstruation with regular cycle; D25.9 Leiomyoma of uterus, unspecified; I10 Essential (primary) hypertension; Z86.711 Personal history of pulmonary embolism; Z79.01 Long term (current) use of anticoagulants; K21.9 Gastro-esophageal reflux disease without esophagitis; K59.00 Constipation, unspecified; Z79.899 Other long term (current) drug therapy; T45.4X6A Underdosing of iron and its compounds, initial encounter; Z91.128 Patient's intentional underdosing of medication regimen for other reason
CPT/HCPCS: 36415; 36430; 76830; 80048; 82728; 83010; 83540; 83550; 84702; 85025; 85027; 85045; 85610; 85730; 86850; 86900; 86901; 86920; 88305; 93005; 93976; 99285

== ENCOUNTER → 2019-07-05 | Outpatient (CLI) | payer BC ==
--- NOTE | 2019-07-05 16:25 | CT ---
EXAMINATION TYPE: CT angio chest DATE OF EXAM: 07/05/2019 COMPARISON: CTA chest October 16, 2018 HISTORY: Hx of PE back in October. Went off blood thinners in May, began to have same symptoms, feel ings in legs. Back on blood thinners CT DLP: 225.90 mGycm. Automated Exposure Control for Dose Reduction was Utilized. CONTRAST: CTA scan of the thorax is performed with IV Contrast, patient injected with 100 mL of Isovue 370, pul monary embolism protocol. MIP Images are created on CT scanner and reviewed. FINDINGS: LUNGS: [id number] biapical pleural/parenchymal scarring is redemonstrated. Some dependent atele ctasis bilateral lower lobes. No pleural effusion or pneumothorax. No suspicious nodules or masses. N o suspicious focal consolidation. MEDIASTINUM: There is suboptimal bolus with near equal contrast the right and left heart systems and heterogeneity. No central pulmonary embolism. Smaller segmental and subsegmental PE not entirely excl uded on this exam . There are no greater than 1 cm hilar or mediastinal lymph nodes. No cardiomegal y or pericardial effusion is seen. OTHER: No additional significant abnormality is seen. IMPRESSION: 1. Suboptimal study versus prior without central pulmonary embolism. Smaller segmental and Subsegment al PE not entirely excluded on this exam. 2. No new suspicious acute pulmonary process.
== END | disposition home or self-care (01) ==
LOC: RADCTMAIN 15:36
PROVIDERS: ATTEND Internal Medicine Hematology & Oncology
DX: I26.99 Other pulmonary embolism without acute cor pulmonale (principal)
CPT/HCPCS: 71275; Q9967

== ENCOUNTER → 2019-07-06 | Outpatient (CLI) | payer BC ==
--- NOTE | 2019-07-06 08:45 | US ---
EXAMINATION TYPE: US venous doppler duplex LE DATE OF EXAM: 07/06/2019 7:34 AM COMPARISON: NONE CLINICAL HISTORY: R22.42 SWELLING LT LOWER LIMB,R22.41 SWELLING RT LOWER LIMB. Leg pain hx of PE. SIDE PERFORMED: Bilateral TECHNIQUE: The lower extremity deep venous system is examined utilizing real time linear array sonog brenna with graded compression, doppler sonography and color-flow sonography. VESSELS IMAGED: External Iliac Vein (EIV) Common Femoral Vein Deep Femoral Vein Greater Saphenous Vein * Femoral Vein Popliteal Vein Small Saphenous Vein * Proximal Calf Veins (* superficial vessels) Right Leg: Negative for DVT Left Leg: Negative for DVT IMPRESSION: 1. Bilateral lower extremity ultrasound negative for deep venous thrombosis.
== END | disposition home or self-care (01) ==
LOC: RADUSWWP 07:08
PROVIDERS: ATTEND Internal Medicine Hematology & Oncology
DX: R22.43 Localized swelling, mass and lump, lower limb, bilateral (principal)
CPT/HCPCS: 93970

== ENCOUNTER → 2021-02-13 | Outpatient (CLI) | payer BC ==
--- NOTE | 2021-02-14 13:34 | MM ---
Reason for exam: screening (asymptomatic). Last mammogram was performed 3 years and 11 months ago. History: Took hormonal contraceptives beginning at age 21. Physical Findings: A clinical breast exam by your physician is recommended on an annual basis and results should be correlated with mammographic findings. MG Screening Mammo w CAD Bilateral CC and MLO view(s) were taken. XCCL view(s) were taken of the right breast. Prior study comparison: March 13, 2017, bilateral MG screening mammo w CAD. The breast tissue is heterogeneously dense. This may lower the sensitivity of mammography. No significant changes when compared with prior studies. ASSESSMENT: Benign, BI-RAD 2 RECOMMENDATION: Routine screening mammogram of both breasts in 1 year.
== END | disposition home or self-care (01) ==
LOC: RADMAMWWP 07:06
PROVIDERS: ATTEND Obstetrics & Gynecology
DX: Z12.31 Encounter for screening mammogram for malignant neoplasm of breast (principal)
CPT/HCPCS: 77067

== ENCOUNTER → 2022-03-19 | Outpatient (CLI) | payer BC ==
--- NOTE | 2022-03-19 18:21 | CA ---
Transthoracic Echo Report Name: Damaris Canales Age: 46 Gender: F : 1975 Exam Date: 03/19/2022 14:05 Exam Location: [facility] Ht (in): 70 Wt (lb): 170 Ordering Physician: Darvin Patel MD Attending/Referring Phys: Amanda CANDELARIA Senior Stock Plan Administrator Skye Abrams RDCS Procedure CPT: Indications: R60.9 EDEMA Cardiac Hx: Technical Quality: Fair Contrast 1: Total Dose (mL): Contrast 2: Total Dose (mL): MEASUREMENTS (Male / Female) Normal Values 2D ECHO LV Diastolic Diameter PLAX 3.7 cm 4.2 - 5.9 / 3.9 - 5.3 cm LV Systolic Diameter PLAX 2.6 cm IVS Diastolic Thickness 1.0 cm 0.6 - 1.0 / 0.6 - 0.9 cm LVPW Diastolic Thickness 1.1 cm 0.6 - 1.0 / 0.6 - 0.9 cm LV Relative Wall Thickness 0.5 RV Internal Dim ED PLAX 2.4 cm LA Volume 36.5 cm??? 18 - 58 / 22 - 52 cm??? M-MODE Aortic Root Diameter MM 2.3 cm LA Systolic Diameter MM 3.5 cm LA Ao Ratio MM 1.5 AV Cusp Separation MM 1.6 cm DOPPLER AV Peak Velocity 109.2 cm/s AV Peak Gradient 4.8 mmHg AV Mean Velocity 83.5 cm/s AV Mean Gradient 2.9 mmHg AV Velocity Time Integral 22.6 cm LVOT Peak Velocity 104.4 cm/s LVOT Peak Gradient 4.4 mmHg MV Area PHT 2.6 cm??? Mitral E Point Velocity 71.1 cm/s Mitral A Point Velocity 74.2 cm/s Mitral E to A Ratio 1.0 MV Deceleration Time 288.6 ms MV E' Velocity 10.2 cm/s Mitral E to MV E' Ratio 7.0 TR Peak Velocity 228.1 cm/s TR Peak Gradient 20.8 mmHg Right Ventricular Systolic Press 24.3 mmHg FINDINGS Left Ventricle Normal Left ventricular size, wall thickness, systolic function with no obvious regional wall motion abnormalities. Normal Left ventricular diastolic filling pattern. Left ventricular ejection fraction is estimated at 55-60 %. Right Ventricle Normal right ventricular size and function. Right ventricular systolic pressure within normal limits. Right Atrium Normal right atrial size. Left Atrium Normal left atrial size. Mitral Valve Structurally normal mitral valve. No mitral stenosis. No evidence for mitral valve prolapse. Mild mitral regurgitation Aortic Valve Trileaflet aortic valve. No aortic valve stenosis or regurgitation. Tricuspid Valve Structurally normal tricuspid valve. Mild tricuspid regurgitation. Pulmonic Valve Structurally normal pulmonic valve. Pericardium No pericardial effusion. Aorta Normal size aortic root and proximal ascending aorta. CONCLUSIONS 1. Normal left ventricle size and systolic function 2. Mild mitral and tricuspid regurgitation Previewed by: Dr. Juanita Mar MD (Electronically Signed) Final Date: 19 March 2022 18:20
== END | disposition home or self-care (01) ==
LOC: RADECHMAIN 14:00
PROVIDERS: ATTEND Family Medicine
DX: I08.1 Rheumatic disorders of both mitral and tricuspid valves (principal)
CPT/HCPCS: 93306

== ENCOUNTER → 2022-03-22 | Outpatient (CLI) | payer BC ==
--- NOTE | 2022-03-22 15:15 | US ---
EXAMINATION TYPE: US venous doppler duplex LE LT DATE OF EXAM: 03/22/2022 2:53 PM COMPARISON: NONE CLINICAL HISTORY: R22.42 Swelling of left lower limb, M79.662 Pain in left low. ongoing swelling of l eft leg with numbness, h/o right leg dvt and pe's, not currently on thinners SIDE PERFORMED: left TECHNIQUE: The lower extremity deep venous system is examined utilizing real time linear array sonog brenna with graded compression, doppler sonography and color-flow sonography. VESSELS IMAGED: Common Femoral Vein Deep Femoral Vein Greater Saphenous Vein * Femoral Vein Popliteal Vein Small Saphenous Vein * Proximal Calf Veins (* superficial vessels) Left Leg: Negative for DVT IMPRESSION: No evidence of DVT at this time.
== END | disposition home or self-care (01) ==
LOC: RADUSWWP 14:25
PROVIDERS: ATTEND Internal Medicine Hematology & Oncology
DX: M79.662 Pain in left lower leg (principal); R22.42 Localized swelling, mass and lump, left lower limb